=== PATIENT | female | born 1980 | race Caucasian/White ===

== ENCOUNTER 2021-08-11 07:59 | Emergency (ER) | payer MEDICAID, OTHER, SELFPAY ==
[2021-08-11 08:09] VITALS: BP 130/98; PULSE 70; RESP 14; TEMP 36.7; O2SAT 96; BMI 36.0
--- NOTE | 2021-08-11 08:12 | W.ED.LOWEXIN ---
HPI - Extremity Injury (Lower) General: Chief Complaint: Extremity Injury, Lower Stated Complaint: Fell, R knee injury Time Seen by Provider: 08/11/21 08:00 Source: patient Mode of arrival: ambulatory Limitations: no limitations History of Present Illness: 41-year-old female who presents to the emergency room after falling at work yesterday she slipped on some water. 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 She not strike her head she not lose consciousness she had an eversion kind of injury of her right knee she has been walking on it since but it is somewhat painful. He has not fallen again. complaint: knee injury (Right) Onset (ago): day(s) (1) Type of Injury: eversion Place: home Severity: mild Relieving factors: rest Exacerbating factors: weight bearing Context: fall Associated symptoms: Reports no associated symptoms Other symptoms: none Review of Systems Const: Denies: fever(s), chills, body aches, change in appetite, fatigue or malaise Card: Denies: chest pain, edema, dyspnea on exertion or orthopnea Resp: Denies: dyspnea, productive cough or non-productive cough PFS ED PFSH: Medical History (Updated 08/11/21 @ 08:37 by Brent Reilly DO) No significant past medical history Surgical History (Updated 08/11/21 @ 08:25 by Brent Reilly DO) No significant past surgical history Physical Exam Const: COMMON NORMALS: no acute distress GENERAL APPEARANCE: cooperative and comfortable ORIENTATION/CONSCIOUSNESS: Yes awake, Yes oriented to person, Yes oriented to place and Yes oriented to time HENMT: COMMON NORMALS: normocephalic, atraumatic and hearing grossly normal bilaterally HEAD & SCALP: normocephalic and atraumatic Neck/C-Spine: COMMON NORMALS: no JVD Resp: COMMON NORMALS: normal respiratory effort, No retractions, No use of accessory muscles and clear to auscultation bilaterally AUSCULTATION: clear to auscultation bilaterally Cardio: COMMON NORMALS: no JVD, regular rate, regular rhythm and No murmurs present (Cardio) RATE: regular rate RHYTHM: regular rhythm Extremity: COMMON NORMALS: normal to inspection, capillary refill normal, no clubbing, cyanosis or edema, no calf tenderness and no pedal edema OTHER: No ligamentous injury. drawer and Kenny tests negative. Neuro: SENSORIUM/ORIENTATION: Yes oriented to person, Yes oriented to place and Yes oriented to time Course Vital Signs: Vital signs: Vital Signs Temperature 98.1 F 08/11/21 08:09 Pulse Rate 73 08/11/21 08:16 Respiratory Rate 16 08/11/21 08:16 Blood Pressure 130/98 08/11/21 08:16 Pulse Oximetry 97 08/11/21 08:16 MDM - Extremity Injury (Lower) Medical Decision Making No ligamentous instability or laxity on examination of the right knee no acute fracture. We will put her in a knee immobilizer and crutches nonweightbearing recheck in 3 to 5 days if has persistent or worsening symptoms will need further evaluation, potentially including advanced imaging. Discussed with the patient. Patient being referred to for drug screening for Workmen's Compensation. Lab Data I reviewed the patient's lab results. Discharge Plan Discharge Patient Disposition: Home Clinical Impression: Right knee sprain Condition: Stable Prescriptions: New diclofenac sodium 75 mg tablet,delayed release (DR/EC) 75 mg PO Q12H PRN (Reason: pain) Qty: 20 0RF No Action flecainide 50 mg tablet 50 mg PO Q12H Qty: 180 3RF metoprolol succinate 25 mg tablet extended release 24 hr 25 mg PO DAILY Qty: 30 0RF Rx Instructions: MUST HAVE APPT FOR REFILLS Discharge Orders: Discharge ED (Routine); Ordered 08/11/21 Ordered By: Brent Reilly Referrals: Kushal Pierre MD [Primary Care Provider] - Discharge Diet: Usual diet Activity Restrictions/Additional Instructions: Follow-up with your primary care doctor within the next week Coding Level of Care Code ED Senior Online Marketing Manager for Chg Fwd Exam Detailed
--- NOTE | 2021-08-11 08:13 | XR_ITS ---
WS: [id number] RIGHT KNEE: 3 VIEW(S) TECHNIQUE: AP, oblique(s) and lateral. HISTORY: pain COMPARISON: None available. Seen only on the lateral projection is cortical irregularity along the anterior medial femoral condyl e. There is also slight irregularity noted in the lateral femoral notch. This may be associated with an ACL injury. No tibial plateau fracture. Patella appears normal. Minimal narrowing of the medial joint space. Small suprapatellar effusion. No soft tissue abnormality. XR/XR knee RT 3V* [id number] IMPRESSION: 1. Seen only on the lateral projection is cortical irregularity involving the anterior femoral condyle, probably the medial femoral condyle. 2. Slight irregularity at the lateral femoral notch which may indicate an ACL injury. 3. Small joint effusion. 4. Recommend follow-up RIGHT knee CT to exclude fracture.
[2021-08-11 08:16] VITALS: BP 130/98; PULSE 73; RESP 16; O2SAT 97
[2021-08-11] MEDS: ketorolac 60 mg/2 mL INJ IM (08:43)
--- NOTE | 2021-08-11 08:52 | PC.NURSE ---
PATIENT STATES SHE HAS CRUTCHES AT HOME. EDUCATION GIVEN ON USE.
[2021-08-11 08:53] VITALS: BP 125/89; PULSE 70; RESP 16; O2SAT 98
== END 2021-08-11 08:55 | disposition home or self-care (01) ==
PROVIDERS: Emergency Provider Family Medicine; PCP Family Medicine
DX: S83.91XA Sprain of unspecified site of right knee, initial encounter (principal); W01.0XXA Fall on same level from slipping, tripping and stumbling without subsequent striking against object, initial encounter; Y99.0 Civilian activity done for income or pay
CPT/HCPCS: 29530; 73562; 96372; 99283; J1885

== ENCOUNTER 2021-09-08 07:34 | Outpatient (CLI) | payer MEDICAID, SELFPAY ==
--- NOTE | 2021-09-08 07:52 | MR_ITS ---
WS: [id number] MRI RIGHT KNEE HISTORY: R KNEE PAIN COMPARISON: 08/11/2021 radiograph. Anterior cruciate ligament: Increased T2 signal in the distal proximal ACL. No full-thickness tear. Posterior cruciate ligament: Intact. Medial collateral ligament: Fluid on both sides of the MCL with thickening and partial tear involving the proximal tibial collateral ligament. Posterior lateral corner structures: Intact. Medial menisci: Intact. Normal signal, size and shape. Lateral meniscus: Intact. Normal signal, size and shape. Extensor mechanism: Distal quadriceps tendon and patellar tendons are intact. Fluid and soft tissue: There is a small joint effusion. Minimal soft tissue edema surrounding the kne e, greatest along the medial compartment. No Traylor's cyst. Osseous and articular structures: Patellofemoral compartment: Normal. Medial compartment: Very mild narrowing of the joint space. Mild diffuse loss of cartilage with fissu ring. No edema in the tibial plateau. There is a small amount of edema with loss of the normal trabec ular pattern involving the posterior medial femoral condyle. Lateral compartment: Minimal narrowed with mild fissuring and chondromalacia. More focal cartilage de fect along the weightbearing surface of the mid joint. No fracture or marrow edema. MR/MR knee RT wo con* [id number] IMPRESSION: 1. Partial tear proximal medial collateral ligament. 2. Focal marrow edema in the posterior medial femoral condyle from trabecular injury. 3. Mild ACL sprain. No full-thickness tear identified. 4. Mild mid to the medial lateral compartments with mild chondromalacia.
== END 2021-09-08 07:35 | disposition home or self-care (01) ==
LOC: RAD 07:37
PROVIDERS: PCP Family Medicine; Visit Provider Family Medicine
DX: S83.411A Sprain of medial collateral ligament of right knee, initial encounter (principal); S83.511A Sprain of anterior cruciate ligament of right knee, initial encounter; X58.XXXA Exposure to other specified factors, initial encounter; M94.261 Chondromalacia, right knee
CPT/HCPCS: 73721

== ENCOUNTER → 2021-09-21 08:54 | Outpatient (BNVA) | payer MEDICAID, SELFPAY | PROVIDERS: PCP Family Medicine; Referring Provider Internal Medicine; Visit Provider Physician Assistant | DX: S83.242A Other tear of medial meniscus, current injury, left knee, initial encounter (principal); W18.39XA Other fall on same level, initial encounter; Y99.0 Civilian activity done for income or pay | CPT/HCPCS: 99203; 99999 ==

== ENCOUNTER 2021-09-21 10:41 | Outpatient (CLI) | payer MEDICAID, SELFPAY | END 2021-09-21 10:42 | disposition home or self-care (01) | LOC: SPT 10:42 | PROVIDERS: PCP Family Medicine; Visit Provider Physician Assistant | DX: Z46.89 Encounter for fitting and adjustment of other specified devices (principal); S83.91XD Sprain of unspecified site of right knee, subsequent encounter; X58.XXXD Exposure to other specified factors, subsequent encounter | CPT/HCPCS: 97760; L1832 ==

== ENCOUNTER → 2021-10-28 09:14 | Outpatient (BNVA) | payer MEDICAID, SELFPAY | PROVIDERS: PCP Family Medicine; Visit Provider Physician Assistant | DX: S83.411D Sprain of medial collateral ligament of right knee, subsequent encounter (principal); X58.XXXD Exposure to other specified factors, subsequent encounter | CPT/HCPCS: 99213 ==

== ENCOUNTER → 2021-11-18 13:44 | Outpatient (BNVA) | payer MEDICAID, SELFPAY | PROVIDERS: PCP Family Medicine; Visit Provider Physician Assistant | DX: S83.411D Sprain of medial collateral ligament of right knee, subsequent encounter (principal); X58.XXXD Exposure to other specified factors, subsequent encounter | CPT/HCPCS: 99212 ==

== ENCOUNTER → 2023-05-15 11:17 | Outpatient (BNVA) | payer MEDICAID, SELFPAY | PROVIDERS: PCP Family Medicine; Visit Provider Family Medicine | DX: F41.9 Anxiety disorder, unspecified (principal); F32.A Depression, unspecified; Z13.220 Encounter for screening for lipoid disorders; Z51.81 Encounter for therapeutic drug level monitoring | CPT/HCPCS: 80053; 80061; 84443; 85025 ==

== ENCOUNTER 2023-11-24 10:43 | Observation (INO) | payer MEDICAID, SELFPAY ==
[2023-11-24] VITALS (14 sets, daily range): BP systolic 90–130; BP diastolic 49–104; PULSE 67–154; RESP 14–31; TEMP 36.6–36.8; O2SAT 95–99
--- NOTE | 2023-11-24 10:52 | ECG_ITS ---
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 Measurements Intervals [place] Rate: 154 P: 0 PA: 0 QRS: -14 QRSD: 83 T: 60 QT: 265 QTc: 425 Interpretive Statements ATRIAL FIBRILLATION WITH RAPID VENTRICULAR RESPONSE POSSIBLE ANTERIOR MYOCARDIAL INFARCTION , PROBABLY OLD [30 ms Q WAVE IN V3/V4, OR R < 0.2 mV IN V4] CRITICAL TEST RESULT No previous ECG available for comparison Electronically Signed On 11-24-2023 13:44:00 CDT by Gabe Dia M.D. [id number]
[2023-11-24] MEDS: dilTIAZem 5 mg/mL SDV 5 mL 20 MG IVP (11:05)
--- NOTE | 2023-11-24 11:11 | ED_ITS ---
HPI - Arrhythmia/Palpitations 2 General: Chief Complaint: Arrhythmia/Palpitations Stated Complaint: racing heart, numbness in left arm, has a-fib Time Seen by Provider: 11/24/23 11:00 Source: patient Mode of arrival: ambulatory History of Present Illness: 43-year-old female with a history of atr ial fibrillation was diagnosed about 10 years ago. Her A-fib is idiopathic. For the last 24 hours she has had racing of her heart rate with heaviness in her left arm some mild chest discomfort lightheadedness dizziness she has not passed out. She has not had any orthopnea no swelling in her legs. She was previously on propranolol but ran out about a month ago she has not been on any regular long-term medications for her rate nor has she been on any anticoagulants. MD complaint: rapid heart beat and heart racing Review of Systems 2 Const: Denies: fever(s) or chills Card: Denies: chest pain Resp: Denies: dyspnea GI: Denies: abdominal pain : Denies: dysuria, urinary frequency or urinary urgency Musc: Denies: neck pain or back pain Skin/Breast: Denies: rash PFSH ED 2 PFSH: Medical History Paroxysmal atrial fibrillation off of coumadin due to heavy periods Surgical History Hx of cholecystectomy Family History Other CAD (coronary artery disease) Diabetes Hypertension Social History (Updated 11/24/23 @ 13:35 by Chas Mendieta MD) Smoking and tobacco/nicotine status: never used tobacco/nicotine Alcohol intake: never Substance/Drug Use: never Physical Exam 2 Const: GENERAL APPEARANCE: cooperative and comfortable O RIENTATION/CONSCIOUSNESS: Yes awake, Yes oriented to person, Yes oriented to place and Yes oriented to time HENMT: COMMON NORMALS: normocephalic, atraumatic and hearing grossly normal bilaterally HEAD & SCALP: normocephalic and atraumatic Resp: COMMON NORMALS: normal respiratory effort, No retractions, No use of accessory muscles and clear to auscultation bilaterally AUSCULTATION: clear to auscultation bilaterally Cardio: COMMON NORMALS: No murmurs present (Cardio) RATE: tachycardic R HYTHM: abnormal rhythm irregularly irregular GI: COMMON NORMALS: Soft to palpation and No hepatosplenomegaly present A USCULTATION: Yes normoactive bowel sounds PALPATION: Yes Soft to palpation, No Tenderness to palpation present (GI), No Guarding due to palpation present (GI) and Yes No hepatosplenomegaly present Extremity: COMMON NORMALS: normal to inspection, capillary refill normal, no clubbing, cyanosis or edema, no calf tenderness and no pedal edema Neuro: SENSORIUM/ORIENTATION: Yes oriented to person, Yes oriented to place and Yes oriented to time Skin: COMMON NORMALS: no rashes or lesions noted GENERAL SKIN EXAM: no rashes or lesions noted Course 2 Vital Signs: Vital signs: Vital Signs Temperature 98.2 F 11/24/23 10:49 Pulse Rate 110 H 11/24/23 12:17 Respiratory Rate 18 11/24/23 12:17 Blood Pressure 130/104 11/24/23 12:17 Pulse Oximetry 96 11/24/23 12:17 Oxygen Delivery Me thod Room Air 11/24/23 12:17 MDM - Arrhythmia/Palpitations Medical Decision Making A-fib with RVR rate improved with initiation of Cardizem. Not previously on medicines for rate control placed on observation continue Cardizem drip discussed with hospitalist orders written Medical Records I reviewed the patient's medical records. Lab Data I reviewed the patient's lab results. 11/24/23 11:04 11/24/23 11:04 Radiology Impressions Chest X-Ray 11/24/23 11:47 IMPRESSION: Unremarkable chest radiograph. Laboratory Results WBC 9.43 10^3/uL (3.29-11.43) 11/24/23 11:04 RBC 5.04 10^6/uL (3.85-5.65) 11/24/23 11:04 Hgb 14.60 g/dL (11.27-16.99) 11/24/23 11:04 Hct 44.6 % (36-47) 11/24/23 11:04 MCV 88.5 fl (85-98) 11/24/23 11:04 MCH 29.0 pg (27-33) 11/24/23 11:04 MCHC 32.7 g/dL (30-55) 11/24/23 11:04 RDW 13.1 % (12.1-15.1) 11/24/23 11:04 Plt Count 360 10^3/cmm (157-399) 11/24/23 11:04 MPV 10.8 fL (7.4-10.4) H 11/24/23 11:04 Neut % (Auto) 61.7 % 11/24/23 11:04 Lymph % (Auto) 30.1 % 11/24/23 11:04 [place] % (Auto) 6.3 % 11/24/23 11:04 Eos % (Auto) 1.2 % 11/24/23 11:04 Baso % (Auto) 0.5 % 11/24/23 11:04 Neut # (Auto) 5.82 10^3/uL (1.8-7.7) 11/24/23 11:04 Lymph # (Auto) 2.8 10^3/uL (0.8-4.8) 11/24/23 11:04 [place] # (Auto) 0.6 10^3/uL (0.2-0.9) 11/24/23 11:04 Eos # (Auto) 0.1 10^3/uL (0.0-0.8) 11/24/23 11:04 Baso # (Auto) 0.1 10^3/uL (0.0-0.1) 11/24/23 11:04 Nucleated RBC % (auto) 0 % 11/24/23 11:04 Nucleated RBCs # 0.0 /100WBC 11/24/23 11:04 Sodium 142 mmol/L (136-145) 11/24/23 11:04 Potassium 4.2 mmol/L (3.5-5.1) 11/24/23 11:04 Chloride 107 mmol/L (98-107) 11/24/23 11:04 Carbon Dioxide 24 mmol/L (22-29) 11/24/23 11:04 Anion Gap 15.2 (5-19) 11/24/23 11:04 BUN 10 mg/dL (6-20) 11/24/23 11:04 Creatinine 0.7 mg/dL (0.5-0.9) 11/24/23 11:04 GFR Calculation 90.9 mL/min (90-130) 11/24/23 11:04 Glucose 158 mg/dL (65-115) H 11/24/23 11:04 Calculated Osmolality 296 mOsm/kg (285-295) H 11/24/23 11:04 Calcium 9.1 mg/dL (8.5-10.5) 11/24/23 11:04 Total Bilirubin 0.5 mg/dL (0.15-1.2) 11/24/23 11:04 AST 22 U/L (0-32) 11/24/23 11:04 ALT 39 U/L (0-33) H 11/24/23 11:04 Alkaline Phosphatase 96 U/L (35-105) 11/24/23 11:04 Troponin T Baseline < 6 ng/L (0-10) 11/24/23 11:04 Troponin T 120 Minute 6.00 ng/L (0-10) 11/24/23 13:04 Delta Troponin T 0.61475 ABS# (0-10) 11/24/23 13:04 Total Protein 7.3 g/dL (6.6-8.7) 11/24/23 11:04 Albumin 4.4 g/dL (3.5-5.2) 11/24/23 11:04 Globulin 2.9 g/dL (1.3-4.6) 11/24/23 11:04 TSH 2.28 uIU/mL (0.27-4.20) 11/24/23 11:04 Urine Color Yellow (Yellow) 11/24/23 13:11 Urine Appearance Cloudy (CLEAR) A 11/24/23 13:11 Urine pH 6 (5-7) 11/24/23 13:11 Ur Specific [place] 1.020 (1.005-1.030) 11/24/23 13:11 Urine Protein Neg (Negative) 11/24/23 13:11 Urine Glucose (UA) Norm (Normal) 11/24/23 13:11 Urine Ketones Negative (Negative) 11/24/23 13:11 Urine Blood Trace (Negative) H 11/24/23 13:11 Urine Nitrate Negative (Negative) 11/24/23 13:11 Urine Bilirubin Neg (Negative) 11/24/23 13:11 Urine Urobilinogen Norm mg/dL (Negative) 11/24/23 13:11 Ur Leukocyte Esterase 2+ (Negative) H 11/24/23 13:11 Urine RBC 0-4 /hpf (0-2) H 11/24/23 13:11 Urine WBC 25-40 /hpf (0-5) H 11/24/23 13:11 Ur Squamous Epith Cells 10-15 /hpf (0-5) H 11/24/23 13:11 Amorphous Sediment Trace /hpf 11/24/23 13:11 Urine Bacteria 1+ /hpf (NONE) H 11/24/23 13:11 Urine Mucus 1+ /hpf 11/24/23 13:11 All radiology interpretation(s) finalized by discharge Discharge Plan Discharge Patient Disposition: Admitted As Inpatient Clinical Impression: Atrial fibrillation with RVR Condition: Stable Coding Level of Care Code ED Naturalist for Félix Mckee
[2023-11-24 11:15] LABS: Basophils # 0.1 10^3/uL (0.0-0.1); Basophils % 0.5 %; Eosinophils # 0.1 10^3/uL (0.0-0.8); Eosinophils % 1.2 %; Hematocrit 44.6 % (36-47); Lymphocytes # 2.8 10^3/uL (0.8-4.8); Lymphocytes % 30.1 %; Mean Corpuscular HGB Conc 32.7 g/dL (30-55); Mean Corpuscular Volume 88.5 fl (85-98); Mean Platelet Volume 10.8 fL (7.4-10.4); Monocytes # 0.6 10^3/uL (0.2-0.9); Monocytes % 6.3 %; Neutrophils # 5.82 10^3/uL (1.8-7.7); Neutrophils % 61.7 %; Nucleated Red Blood Cells % 0 %; Platelet Count 360 10^3/cmm (157-399); Red Blood Count 5.04 10^6/uL (3.85-5.65); Red Cell Distribution Width 13.1 % (12.1-15.1); White Blood Count 9.43 10^3/uL (3.29-11.43)
[2023-11-24] MEDS: dilTIAZem 100 MG in sodium chloride 0.9% (add-van) 100 ML IV (11:22)
[2023-11-24 11:34] LABS: Troponin(5th) Baseline < 6 ng/L (0-10)
[2023-11-24 11:44] LABS: Alanine Aminotransferase 39 U/L (0-33); Albumin Level 4.4 g/dL (3.5-5.2); Alkaline Phosphatase 96 U/L (35-105); Aspartate Amino Transferase 22 U/L (0-32); Blood Urea Nitrogen 10 mg/dL (6-20); Calcium 9.1 mg/dL (8.5-10.5); Carbon Dioxide 24 mmol/L (22-29); Chloride 107 mmol/L (98-107); Globulin 2.9 g/dL (1.3-4.6); Glomerular Filtration Rate 90.9 mL/min (90-130); Glucose 158 mg/dL (65-115); Osmolality Calculated 296 mOsm/kg (285-295); Sodium 142 mmol/L (136-145); Thyroid Stimulating Hormone 2.28 uIU/mL (0.27-4.20); Total Bilirubin 0.5 mg/dL (0.15-1.2); Total Protein 7.3 g/dL (6.6-8.7)
--- NOTE | 2023-11-24 11:47 | XR_ITS ---
WS: [id number] Exam: XR chest 1V portable [id number] Date/Time of Exam: 11/24/2023 11:50 AM Reason For Exam: dyspnea/cough Comparison 04/15/2013. Findings: The lungs are clear and fully expanded. Costophrenic angles are sharp. No infiltrates. Bronchovascula r relief appears normal. Cardiac silhouette is unremarkable. Bony elements are intact. XR/XR chest 1V portable [id number] IMPRESSION: Unremarkable chest radiograph.
[2023-11-24 12:02] LABS: Anion Gap 15.2 (5-19); Potassium 4.2 mmol/L (3.5-5.1)
--- NOTE | 2023-11-24 13:01 | ECG_ITS ---
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 Measurements Intervals [place] Rate: 83 P: 0 [place]: 0 QRS: 2 QRSD: 88 T: 76 QT: 354 QTc: 417 Interpretive Statements ATRIAL FIBRILLATION POSSIBLE ANTERIOR MYOCARDIAL INFARCTION , PROBABLY OLD [30 ms Q WAVE IN V3/V4, OR R < 0.2 mV IN V4] ABNORMAL RHYTHM ECG Compared to ECG 11/24/2023 10:43:19 No significant changes Electronically Signed On 11-24-2023 14:02:47 CDT by Gabe Dia M.D. [email or web address] system [email or web address] hospital.[employer]/store/OM/[id number]
[2023-11-24 13:26] LABS: Add Urine Microscopic? YES; Bilirubin Urine Neg (Negative); Blood Urine Trace (Negative); Glucose Urine UA Norm (Normal); Ketones Urine Negative (Negative); Leukocyte Esterase Urine 2+ (Negative); Nitrate Urine Negative (Negative); Protein Urine Neg (Negative); Urine Appearance Cloudy (CLEAR); Urine Color Yellow (Yellow); Urobilinogen Urine Norm (Negative); pH Urine 6 (5-7)
[2023-11-24 13:28] LABS: Troponin 5 2HR Delta 0.00001 ABS# (0-10)
[2023-11-24 13:30] LABS: RBC Urine 0-4 /hpf (0-2)
[2023-11-24 13:31] LABS: Add Urine Culture? Yes; Amorphous Sediment Urine TRACE /hpf; Bacteria Urine 1+ /hpf; Mucus Urine 1+ /hpf; WBC Urine 25-40 /hpf (0-5)
--- NOTE | 2023-11-24 13:31 | USCV_ITS ---
Freddy Annia Age: 43 Gender: F : 1980 Exam Date: 11/24/2023 15:23 Ordering Phys: Chas Mendieta MD Technologist: Issac Linares [place] [facility] [place] new onset afiv BP: 114 / 81 HR: 79 Rhythm: Sinus Technical Quality: Poor MEASUREMENTS (Male / Female) Normal Values 2D ECHO LV Diastolic Diameter PLAX 4.7 cm 4.2 - 5.9 / 3.9 - 5.3 cm IVS Diastolic Thickness 1.4 cm 0.6 - 1.0 / 0.6 - 0.9 cm LVPW Diastolic Thickness 1.4 cm 0.6 - 1.0 / 0.6 - 0.9 cm LVPW Systolic Thickness 2.0 cm LVOT Diameter 2.0 cm LV Ejection Fraction 2D Teich 58.9 % LV Ejection Fraction MOD 2C 69.9 % LV Ejection Fraction 2C AL 71.6 % LA Diameter 3.9 cm RA Systolic Volume 4C AL 41.7 ml RA Systolic Volume 4C MOD 42.9 ml Aorta at Sinotubular Diameter 2.7 cm IVC Diameter 1.8 cm M-MODE LA Ao Ratio MM 1.1 AV Cusp Separation MM 2.2 cm DOPPLER AV Peak Velocity 102.0 cm/s LVOT Peak Velocity 64.0 cm/s AV Area Cont Eq vti 2.5 cm squared AV Area Cont Eq pk 2.1 cm squared MV Peak Velocity 105.0 cm/s TV Peak Velocity 249.5 cm/s TR Peak Velocity 271.0 cm/s TR Peak Gradient 29.4 mmHg TR Mean Velocity 212.0 cm/s TR Mean Gradient 18.9 mmHg TR Velocity Time Integral 73.5 cm PV Peak Velocity 71.3 cm/s RV Ejection Time 0.3 s FINDINGS Left Ventricle Normal left ventricular size, systolic function and wall thickness, with no regional wall motion abnormalities. Rhythm precludes evaluation of diastolic function. Left ventricular ejection fraction is estimated at 60 %. Right Ventricle Normal right ventricular size and systolic function. Right Atrium The right atrium is normal in size. Left Atrium The left atrium is normal in size. Mitral Valve Structurally normal mitral valve without significant stenosis or prolapse. There is no mitral regurgitation. Aortic Valve Structurally normal aortic valve without significant sclerosis or stenosis. There is no aortic regurgitation. Tricuspid Valve Structurally normal tricuspid valve without significant stenosis or regurgitation. Pulmonary artery systolic pressure is normal. Pulmonic Valve Structurally normal pulmonic valve. Pericardium Normal pericardium without effusion. Aorta Ascending aorta dimension 3.26 cm IVC Inferior vena cava not visualized. CONCLUSIONS Normal left ventricular size, systolic function and wall thickness, with no regional wall motion abnormalities. Rhythm precludes evaluation of diastolic function. Left ventricular ejection fraction is estimated at 60 %. Ascending aorta dimension 3.26 cm. Previous study was done in December,. The atrial fibrillation is new. Otherwise, no change. Dr. Gabe Dia MD (Electronically Signed) Final Date: 25 November 2023 11:47 S
--- NOTE | 2023-11-24 13:32 | P.HP_ITS ---
Providers/Chief Complaint 2 Primary Care Provider: Kushal Pierre MD Chief Complaint: racing heart, numbness in left arm, has a-fib History of Present Illness Annia Hayes is a 43 year old female with a past medical history of paroxysmal atrial fibrillation, anxiety depression, who presents [facility] for chest palpitations, shortness of breath. Currently patient is in A- fib heart rates are in the 110s, on Cardizem drip, blood pressure 130/104, she is alert oriented x 3, following all commands. Patient was diagnosed with atrial fibrillation back in 2012, she tells me that she was on diltiazem for some period of time, but she stopped taking it as she started feeling well, she tells me that she was also on Coumadin for some period of time, for her atrial fibrillation, but she was taken off of it due to heavy bleeding during periods, recently she has been having a lot of stressors in her life she has gone through a divorce she is a single mom of 3 kids, so she has had increased stress and anxiety in her life, she also tells me that she drinks roughly 4 cups of coffee a day, for the last few days she has been experiencing increased shortness of breath, paroxysmal nocturnal dyspnea, chest palpitations, no fevers, no chills, no nausea, no vomiting denies history of drug use, denies a history of alcoholism no facial droop no slurring of words no focal weakness Review of Systems 2 Const: Denies: fever(s) Card: Reports: palpitations Resp: Reports: dyspnea GI: Denies: abdominal pain : Denies: flank pain or difficulty voiding Neuro: Denies: headache(s), difficulty walking or dizziness Psych: Reports: anxiety Medications/Allergies Home Medications Medication Instructions Recorded Confirmed Last Taken Type citalopram 10 mg tablet 10 mg PO DAILY #30 tabs 05/15/23 11/24/23 2 Months Ago Rx ~09/24/23 propranolol 10 mg tablet 10 mg PO BID #60 tabs 08/11/23 11/24/23 2 Months Ago Rx ~09/24/23 Allergies Allergy/AdvReac Type Severity Reaction Status Date / Time No Known Allergies Allergy Verified 11/24/23 10:52 PFSH Acute 2 PFSH: Medical History Paroxysmal atrial fibrillation off of coumadin due to heavy periods Surgical History Hx of cholecystectomy Family History Other CAD (coronary artery disease) Diabetes Hypertension Social History (Updated 11/24/23 @ 13:35 by Chas Mendieta MD) Smoking and tobacco/nicotine status: never used tobacco/nicotine Alcohol intake: never Substance/Drug Use: never Vitals/I&O/Wt Last Vital Signs Temp 98.2 F 11/24/23 10:49 Pulse 110 H 11/24/23 12:17 Resp 18 11/24/23 12:17 BP 130/104 11/24/23 12:17 Pulse Ox 96 11/24/23 12:17 O2 Del Method Room Air 11/24/23 12:17 Weight last 48 hrs Weight 110.223 kg Physical Exam 2 Const: COMMON NORMALS: no acute distress and patient oriented x3 HENMT: COMMON NORMALS: normocephalic HEAD & SCALP: normocephalic Eye: COMMON NORMALS: Equal, round and reactive pupils present and EOMs intact bilaterally Neck/C-Spine: COMMON NORMALS: no JVD Lymph: LYMPHATIC: no lymphadenopathy noted Resp: COMMON NORMALS: normal respiratory effort, No retractions, No use of accessory muscles and clear to auscultation bilaterally AUSCULTATION: clear to auscultation bilaterally Cardio: COMMON NORMALS: no JVD, S1 normal heart sound present and S2 normal heart sound present HEART SOUNDS: S1 normal heart sound present and S2 normal heart sound present GI: COMMON NORMALS: Normal to inspection, nondistended, normoactive bowel sounds present, Soft to palpation and non-tender Extremity: NARRATIVE EXTREMITY EXAM: 1+ pitting edema Neuro: COMMON NORMALS: patient oriented x3, CN's II-XII intact bilaterally and moves all extremities Psych: COMMON NORMALS: mental status grossly normal Data 11/24/23 11:04 11/24/23 11:04 A&P Assessment and plan (1) Atrial fibrillation with RVR: (2) Anxiety and depression: Plan Atrial fibrillation with rapid ventricular response ? Trey 2 Vascs2 score 2, mild to moderate risk of CVA, discussed aspirin versus anticoagulation, after discussing risk and benefits, shared decision making, she voiced understanding, all questions answered, for now wants to proceed with aspirin 81 mg ? Plan ? Continue Cardizem drip ? Transition to p.o. Cardizem ? Aspirin 81 mg ? A1c, lipid panel ? 1 dose IV Lasix ? Full code ? Lovenox for DVT prophylaxis Attestations 2 Medical Necessity Statement*: Patient requires hospitalization for A-fib with RVR, outpatient observation Diagnoses Atrial fibrillation with RVR I48.91 Anxiety and depression F41.9; F32.A
[2023-11-24 14:05] LABS: NT Pro B Type Natriuretic Pept 1337 pg/mL (0-125)
[2023-11-24 14:08] LABS: Alcohol Level < 10 mg/dL (0-10)
[2023-11-24 15:05] LABS: Chol HDL Ratio 2.77 mg/dL (0.0-4.40); Cholesterol 130 mg/dL (0-200); HDL Cholesterol 47 mg/dL (60-100); LDL Cholesterol Calculated 61 mg/dL (50-129); Triglycerides 110 mg/dL (0-150)
[2023-11-24 15:20] LABS: Estmated Average Glucose 100; Hemoglobin A1C 5.1 % (4.0-6.0)
[2023-11-24 15:53] LABS: Amphetamines Screen Urine Negative (Negative); Barbiturates Screen Urine Negative (Negative); Benzodiazepines Screen Urine Negative (Negative); Cocaine Screen Urine Negative (Negative); Opiate Screen Urine Negative (Negative); PCP Screen Urine Negative (Negative); THC Screen Urine Negative (Negative)
[2023-11-24] MEDS: FUROsemide 10 mg/mL SDV 2mL 20 MG IVP (16:18)
[2023-11-24] MEDS: pantoprazole 40 mg SDV IVP (16:18)
[2023-11-24] MEDS: dilTIAZem 30 mg Tablet PO (16:19)
[2023-11-24] MEDS: enoxaparin 40 mg/0.4 mL Syringe SUBCUT (16:20)
[2023-11-24] MEDS: aspirin 81 mg EC Tablet PO (16:20)
--- NOTE | 2023-11-24 16:59 | ECG_ITS ---
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 Measurements Intervals [place] Rate: 109 P: 0 [place]: 0 QRS: -9 QRSD: 91 T: 76 QT: 356 QTc: 481 Interpretive Statements ATRIAL FIBRILLATION WITH RAPID VENTRICULAR RESPONSE WITH ABERRANT CONDUCTION OR VENTRICULAR PREMATURE COMPLEXES NONSPECIFIC ST & T-WAVE ABNORMALITY ABNORMAL RHYTHM ECG Compared to ECG 11/24/2023 12:51:00 Ventricular premature complex(es) now present Aberrant conduction of supraventricular beat(s) now present T-wave abnormality now present Myocardial infarct finding no longer present Electronically Signed On 11-25-2023 8:11:25 CDT by Gabe Dia M.D. [email or web address].[email or web address]/[id number]
[2023-11-24 18:21] LABS: Troponin 5 6HR Delta 0.00001 ng/L (0-12)
--- NOTE | 2023-11-24 19:10 | PC.NURSE ---
Patient transferred to ICU. Report given to Jessica RICHARDS.
[2023-11-24] MEDS: dilTIAZem 60 mg Tablet PO (20:40)
[2023-11-24] MEDS: acetaminophen 325 mg Tablet 650 MG PO (20:40)
[2023-11-24] MEDS: cefTRIAXone 1,000 MG in sodium chloride 0.9% (plus) 50 ML 100 MG IV (20:41)
[2023-11-25] VITALS (8 sets, daily range): BP systolic 89–126; BP diastolic 62–89; PULSE 63–86; RESP 16–21; TEMP 36.1–36.3; O2SAT 93–97
[2023-11-25 04:06] LABS: Alanine Aminotransferase 34 U/L (0-33); Albumin Level 3.9 g/dL (3.5-5.2); Alkaline Phosphatase 85 U/L (35-105); Anion Gap 13.6 (5-19); Aspartate Amino Transferase 17 U/L (0-32); Blood Urea Nitrogen 12 mg/dL (6-20); Calcium 8.8 mg/dL (8.5-10.5); Carbon Dioxide 25 mmol/L (22-29); Chloride 106 mmol/L (98-107); Glucose 133 mg/dL (65-115); Osmolality Calculated 294 mOsm/kg (285-295); Potassium 3.6 mmol/L (3.5-5.1); Sodium 141 mmol/L (136-145); Total Bilirubin 0.4 mg/dL (0.15-1.2); Total Protein 6.9 g/dL (6.6-8.7)
[2023-11-25] MEDS: dilTIAZem 60 mg Tablet PO (05:49)
--- NOTE | 2023-11-25 08:16 | PM.DCS ---
Discharge Providers Date of Admission: 11/24/23 14:02 Date of Discharge: November 25, 2023 Attending Provider at Admission: Chas Mendieta MD Attending Provider at Discharge: Chas Mendieta MD Primary Care Provider: Kushal Pierre MD Diagnoses at Discharge Discharge Diagnosis (1) Atrial fibrillation with RVR: Status: Acute (2) Anxiety and depression: Status: Acute Reason for Visit Reason for Visit: racing heart, numbness in left arm, has a-fib Hospital Course Hospital Course Annia Hayes is a 43 year old female with a past medical history of paroxysmal atrial fibrillation, anxiety depression, who presents [facility] for chest palpitations, shortness of breath. Currently patient is in A-fib heart rates are in the 110s, on Cardizem drip, blood pressure 130/104, she is alert oriented x 3, following all commands. Patient was diagnosed with atrial fibrillation back in 2012, she tells me that she was on diltiazem for some period of time, but she stopped taking it as she started feeling well, she tells me that she was also on Coumadin for some period of time, for her atrial fibrillation, but she was taken off of it due to heavy bleeding during periods, recently she has been having a lot of stressors in her life she has gone through a divorce she is a single mom of 3 kids, so she has had increased stress and anxiety in her life, she also tells me that she drinks roughly 4 cups of coffee a day, for the last few days she has been experiencing increased shortness of breath, paroxysmal nocturnal dyspnea, chest palpitations, no fevers, no chills, no nausea, no vomiting denies history of drug use, denies a history of alcoholism no facial droop no slurring of words no focal weaknes This is Andrey is a 43-year-old female, with a past medical history of A-fib with RVR, paroxysmal, who presented to [facility] for A-fib with RVR, she was monitored on a Cardizem drip, transition off to p.o. Cardizem, she converted to normal sinus rhythm during her hospitalization. She will be discharged on Cardizem to 240 mg daily with aspirin 81 mg daily In terms of her CHADS2 Vasc2 score is between 1 and 2 as she does not have a formal diagnosis of hypertension, nonetheless her risk of stroke is mild to moderate risk of CVA, she was on anticoagulation in the past, but he had to be stopped due to heavy bleeding during periods, discussed aspirin versus anticoagulation, after discussing risk and benefits of each option, shared decision making, she voiced understanding, all questions answered, for now wants to proceed with aspirin 81 mg. Nonetheless, we will have her follow-up with cardiology as outpatient, for shared decision making, she was advised if she were to have any strokelike symptoms to immediately call 911 In terms of etiology behind her A-fib with RVR, a significant component related to her caffeine use, she drinks 4 cups of caffeine a day, I have advised her to abstain from caffeine consumption. In addition she is going through a lot of stress in her life she is going through a divorce, she is a single mother of 3 kids. Nonetheless she should follow-up with cardiology, cardiac echocardiogram Physical Exam Const: COMMON NORMALS: no acute distress and patient oriented x3 Resp: COMMON NORMALS: normal respiratory effort, No retractions, No use of accessory muscles and clear to auscultation bilaterally AUSCULTATION: clear to auscultation bilaterally Cardio: COMMON NORMALS: regular rate, regular rhythm, S1 normal heart sound present and S2 normal heart sound present RATE: regular rate RHYTHM: regular rhythm HEART SOUNDS: S1 normal heart sound present and S2 normal heart sound present GI: COMMON NORMALS: Normal to inspection, nondistended, normoactive bowel sounds present and non-tender Extremity: COMMON NORMALS: no pedal edema Neuro: COMMON NORMALS: patient oriented x3 Psych: COMMON NORMALS: mental status grossly normal Discharge Data Studies Completed and Pending Completed Studies During Hospitalization Category Date Time Status XR chest 1V portable [id number] Stat Exams 11/24/23 11:47 Completed Pending at discharge Category Date Time Status Urine Culture Stat Lab 11/24/23 13:11 Received CV. echo complete* [id number] Stat Ultrasound 11/24/23 13:31 Taken Radiology Impressions Chest X-Ray 11/24/23 11:47 IMPRESSION: Unremarkable chest radiograph. Laboratory Results WBC 9.43 10^3/uL (3.29-11.43) 11/24/23 11:04 RBC 5.04 10^6/uL (3.85-5.65) 11/24/23 11:04 Hgb 14.60 g/dL (11.27-16.99) 11/24/23 11:04 Hct 44.6 % (36-47) 11/24/23 11:04 MCV 88.5 fl (85-98) 11/24/23 11:04 MCH 29.0 pg (27-33) 11/24/23 11:04 MCHC 32.7 g/dL (30-55) 11/24/23 11:04 RDW 13.1 % (12.1-15.1) 11/24/23 11:04 Plt Count 360 10^3/cmm (157-399) 11/24/23 11:04 MPV 10.8 fL (7.4-10.4) H 11/24/23 11:04 Neut % (Auto) 61.7 % 11/24/23 11:04 Lymph % (Auto) 30.1 % 11/24/23 11:04 [place] % (Auto) 6.3 % 11/24/23 11:04 Eos % (Auto) 1.2 % 11/24/23 11:04 Baso % (Auto) 0.5 % 11/24/23 11:04 Neut # (Auto) 5.82 10^3/uL (1.8-7.7) 11/24/23 11:04 Lymph # (Auto) 2.8 10^3/uL (0.8-4.8) 11/24/23 11:04 [place] # (Auto) 0.6 10^3/uL (0.2-0.9) 11/24/23 11:04 Eos # (Auto) 0.1 10^3/uL (0.0-0.8) 11/24/23 11:04 Baso # (Auto) 0.1 10^3/uL (0.0-0.1) 11/24/23 11:04 Nucleated RBC % (auto) 0 % 11/24/23 11:04 Nucleated RBCs # 0.0 /100WBC 11/24/23 11:04 Sodium 141 mmol/L (136-145) 11/25/23 03:36 Potassium 3.6 mmol/L (3.5-5.1) 11/25/23 03:36 Chloride 106 mmol/L (98-107) 11/25/23 03:36 Carbon Dioxide 25 mmol/L (22-29) 11/25/23 03:36 Anion Gap 13.6 (5-19) 11/25/23 03:36 BUN 12 mg/dL (6-20) 11/25/23 03:36 Creatinine 0.5 mg/dL (0.5-0.9) 11/25/23 03:36 GFR Calculation 134.0 mL/min (90-130) H 11/25/23 03:36 Glucose 133 mg/dL (65-115) H 11/25/23 03:36 Estimat Average Glucose 100 11/24/23 12:39 Hemoglobin A1c 5.1 % (4.0-6.0) 11/24/23 12:39 Calculated Osmolality 294 mOsm/kg (285-295) 11/25/23 03:36 Calcium 8.8 mg/dL (8.5-10.5) 11/25/23 03:36 Magnesium 2.0 mg/dL (1.7-2.3) 11/24/23 13:04 Total Bilirubin 0.4 mg/dL (0.15-1.2) 11/25/23 03:36 AST 17 U/L (0-32) 11/25/23 03:36 ALT 34 U/L (0-33) H 11/25/23 03:36 Alkaline Phosphatase 85 U/L (35-105) 11/25/23 03:36 Troponin T Baseline < 6 ng/L (0-10) 11/24/23 11:04 Troponin T 120 Minute 6.00 ng/L (0-10) 11/24/23 13:04 Delta Troponin T 0.38022 ABS# (0-10) 11/24/23 13:04 Troponin T Hi Sens 6Hr 6.00 ng/L (0-10) 11/24/23 17:39 Troponin T Hi Sens 6Hr Delta 0.78887 ng/L (0-12) 11/24/23 17:39 NT-Pro-B Natriuret Pep 1337 pg/mL (0-125) H 11/24/23 13:04 Total Protein 6.9 g/dL (6.6-8.7) 11/25/23 03:36 Albumin 3.9 g/dL (3.5-5.2) 11/25/23 03:36 Globulin 3.0 g/dL (1.3-4.6) 11/25/23 03:36 Triglycerides 110 mg/dL (0-150) 11/24/23 13:04 Cholesterol 130 mg/dL (0-200) 11/24/23 13:04 LDL Cholesterol, Calc 61 mg/dL (50-129) 11/24/23 13:04 HDL Cholesterol 47 mg/dL (60-100) L 11/24/23 13:04 LDL/HDL Ratio 1.30 RATIO (0.00-3.22) 11/24/23 13:04 Cholesterol/HDL Ratio 2.77 mg/dL (0.0-4.40) 11/24/23 13:04 TSH 2.28 uIU/mL (0.27-4.20) 11/24/23 11:04 Urine Color Yellow (Yellow) 11/24/23 13:11 Urine Appearance Cloudy (CLEAR) A 11/24/23 13:11 Urine pH 6 (5-7) 11/24/23 13:11 Ur Specific Bend 1.020 (1.005-1.030) 11/24/23 13:11 Urine Protein Neg (Negative) 11/24/23 13:11 Urine Glucose (UA) Norm (Normal) 11/24/23 13:11 Urine Ketones Negative (Negative) 11/24/23 13:11 Urine Blood Trace (Negative) H 11/24/23 13:11 Urine Nitrate Negative (Negative) 11/24/23 13:11 Urine Bilirubin Neg (Negative) 11/24/23 13:11 Urine Urobilinogen Norm mg/dL (Negative) 11/24/23 13:11 Ur Leukocyte Esterase 2+ (Negative) H 11/24/23 13:11 Urine RBC 0-4 /hpf (0-2) H 11/24/23 13:11 Urine WBC 25-40 /hpf (0-5) H 11/24/23 13:11 Ur Squamous Epith Cells 10-15 /hpf (0-5) H 11/24/23 13:11 Amorphous Sediment Trace /hpf 11/24/23 13:11 Urine Bacteria 1+ /hpf (NONE) H 11/24/23 13:11 Urine Mucus 1+ /hpf 11/24/23 13:11 Urine Opiates Screen Negative ng/mL (Negative) 11/24/23 13:11 Ur Barbiturates Screen Negative ng/mL (Negative) 11/24/23 13:11 Ur Phencyclidine Scrn Negative ng/mL (Negative) 11/24/23 13:11 Ur Amphetamines Screen Negative ng/mL (Negative) 11/24/23 13:11 U Benzodiazepines Scrn Negative ng/mL (Negative) 11/24/23 13:11 Urine Cocaine Screen Negative ng/mL (Negative) 11/24/23 13:11 U Marijuana (THC) Screen Negative ng/mL (Negative) 11/24/23 13:11 Ethyl Alcohol < 10 mg/dL (0-10) 11/24/23 13:04 Vitals Last Vital Signs Temp 97.4 F L 11/25/23 04:00 Pulse 70 11/25/23 06:00 Resp 19 H 11/25/23 06:00 BP 103/74 11/25/23 06:00 Pulse Ox 94 11/25/23 06:00 O2 Del Method Room Air 11/24/23 16:35 Discharge Plan Discharge Patient Disposition: Home Condition: Stable Prescriptions: New aspirin 81 mg Tablet,Delayed Release (Dr/Ec) 81 mg PO DAILY 30 Days Qty: 30 0RF diltiazem HCl 240 mg capsule,extended release 24hr 240 mg PO DAILY 30 Days Qty: 30 0RF cefdinir 300 mg capsule 300 mg PO BID 5 Days Qty: 10 0RF Continued citalopram 10 mg tablet 10 mg PO DAILY Qty: 30 6RF Discontinued propranolol 10 mg tablet 10 mg PO BID Qty: 60 6RF Discharge Orders: Discharge Order (Routine); Ordered 11/25/23 Ordered By: Chas Mendieta Referrals: Leonel Covington MD [Referring] - 1 week (afib) Kushal Pierre MD [Primary Care Provider] - Discharge Diet: Cardiac Discharge Activity: Resume usual activity Patient Instructions: Diltiazem (By mouth) (Cardizem, Cardizem CD, Cardizem LA, Cardizem SR), Aspirin (By mouth) (Georgette Extra Strength, Georgette Aspirin Children's,..., Cefdinir (By mouth) (Omnicef), Opioid Safety Activity Restrictions/Additional Instructions: -Take aspirin 81 mg daily ? If you have any strokelike symptoms please call 911 ?continue Cardizem to 240 mg daily -Please abstain from caffeine use Discharge Attestations Time Spent in Discharge Care*: greater than 30 min Quality Metrics Clinical Quality Measures [ No reported AMI, CVA or VTE this stay] Coding Level of Care Code 62857 Total time (in minutes) for Discharge: 45 Diagnoses Atrial fibrillation with RVR I48.91 Anxiety and depression F41.9; F32.A
[2023-11-25] MEDS: aspirin 81 mg EC Tablet PO (08:28)
[2023-11-25] MEDS: citalopram 20 mg Tablet 10 MG PO (08:28)
== END 2023-11-25 08:30 | disposition home or self-care (01) ==
LOC: ER 13:44 → ICU 18:35 → CSU 21:52
PROVIDERS: Admitting Provider Family Medicine; Emergency Provider Family Medicine; PCP Family Medicine; Visit Provider Family Medicine
DX: I48.0 Paroxysmal atrial fibrillation (principal); F41.9 Anxiety disorder, unspecified; F32.A Depression, unspecified; Z63.5 Disruption of family by separation and divorce; Z73.3 Stress, not elsewhere classified; Z79.01 Long term (current) use of anticoagulants
CPT/HCPCS: 36415; 71045; 80053; 80061; 80306; 80307; 81001; 83036; 83735; 83880; 84443; 84484; 85025; 87086; 93005; 93306; 94664; 96365; 96372; 96375; 96376; 99285; C9113; G0378; J0696; J1650; J1940; J3490

== ENCOUNTER 2025-03-09 15:38 | Emergency (ER) | payer BC, MEDICAID, SELFPAY ==
[2025-03-09] VITALS (15 sets, daily range): BP systolic 111–144; BP diastolic 79–98; PULSE 79–167; RESP 16–38; TEMP 36.7; O2SAT 96–100; BMI 34.1
--- NOTE | 2025-03-09 15:39 | ECG_ITS ---
[facility] Date: 2025-03-09 Pat Name: Annia Hayes Department: Room: Gender: Female Sports Information Director: : 1980 Requested By: David Sinclair Order Number: [id number] Nery MD: Tiffani Buitrago M.D. Measurements Intervals [place] Rate: 160 P: 0 [place]: 0 QRS: 1 QRSD: 87 T: 55 QT: 266 QTc: 434 Interpretive Statements ATRIAL FIBRILLATION WITH RAPID VENTRICULAR RESPONSE NONSPECIFIC ST & T-WAVE ABNORMALITY CRITICAL TEST RESULT Compared to ECG 11/24/2023 16:59:26 Aberrant conduction of supraventricular beat(s) no longer present Ventricular premature complex(es) no longer present T-wave abnormality still present Electronically Signed On 03-09-2025 21:19:18 CDT by Tiffani Buitrago M.D. [email or web address]
--- NOTE | 2025-03-09 15:43 | XRR_ITS ---
PROCEDURE INFORMATION: Exam: XR Chest Exam date and time: 03/09/2025 3:55 PM Age: 44 years old Clinical indication: Pain; Chest pressure; Additional info: Afib TECHNIQUE: Imaging protocol: Radiologic exam of the chest. Views: 1 view. Total images: 1 COMPARISON: CR XR chest 1V portable [id number] 11/24/2023 12:23 PM FINDINGS: Lungs: Unremarkable. No consolidation. Pleural spaces: Unremarkable. No pleural effusion. No pneumothorax. Heart/Mediastinum: Unremarkable. No cardiomegaly. Bones/joints: Unremarkable. XR/XR chest 1V portable [id number] IMPRESSION: No acute cardiopulmonary disease or adverse interval change radiographically.
--- OUTSIDE RECORDS SUMMARY | 2025-03-09 15:43 | XMS_ITS | Clinical Summary ---
Author Organization [facility] Address [address] Attn: Epic Prelude ADT [place]ECT[place] [address] Care Team Providers Care Mannequin Mold Maker Name Role Phone Unavailable Primary Care Provider Unavailabl e Allergies No known active allergies Medications Cartia XT 240 mg Controlled Delivery 24 hour capsule Take 1 Capsule by mouth daily. 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, in partial remission 08/20/2019 Panic disorder 08/20/2019 Migraine equivalent syndrome 08/20/2019 Obesity (BMI 35.0-39.9 without comorbidity) 08/03 PAF (paroxysmal atrial fibrillation) 08/30/2013 HTN (hypertension) 08/30/2013 Resolved Problems Problem Noted Date Diagnosed Date Resolved Date Supervision of other normal 02/05/2010 10/21/2010 Encounters Date Type Department Care Team Description 01/07/2025 External Device Data STL ABSTRACTION Provider, Abstract 12/18/2024 External Device Data STL ABSTRACTION Provider, Abstract 12/18/2024 External Device Data STL ABSTRACTION Provider, Abstract from Last 3 Months Immunizations Immunization Administration Dates Next Due (ADACEL/BOOSTRIX)(10 YR UP) TDAP VACCINE, 0.5ML, IM 09/11/2010 (M-M-R II/PRIORIX)(12 MO UP) MEASLES, MUMPS AND RUBELLA VIRUS VACCINE, 0.5 ML IM/SUBCUT 09/11/2010 INFLUENZA VACCINE QUADRIVALENT 6 MOS UP PF IM Family History Medical History Relation Name Comments Diabetes Maternal Grandfather Hypertension Maternal Grandfather Diabetes Maternal Grandmother Hypertension Maternal Grandmother Diabetes Mother Heart Disease Mother High Cholesterol Mother Hypertension Mother Cancer Paternal Grandfather ??? Breast Cancer Neg Hx neg responses- see media tab Colon Cancer Neg Hx Ovarian Cancer Neg Hx Relation Name Status Comments Father Alive Maternal Grandfather Alive Maternal Grandmother Alive Mother Alive Paternal Grandfather Paternal Grandmother Alive Sister Alive Social History Tobacco Use Types Packs/Day Years Used Date Smoking Tobacco: Never Smokeless Tobacco: Never Tobacco Cessation:Counseling Given: Not Answered Alcohol Use Standard Drinks/Week Comments No 0 (1 standard drink = 0.6 oz pur e alcohol) Comments No Sex and Gender Information Value Date Recorded Sex Assigned at Not on file Legal Sex Female 2:13 AM PAWN SHOP KEEPER Gender Identity Not on file Sexual Orientation Not on file Last Filed Vital Signs Vital Sign Reading Time Taken Comments Blood Pressure 112/74 04/25/2024 11:06 AM PAWN SHOP KEEPER Pulse 90 08/20/2019 1:42 PM CDT Temperature 36.1 C (97 F) 08/20/2019 1:42 PM CDT Respiratory Rate 16 08/20/2019 1:42 PM CDT Oxygen Saturation - - Inhaled Oxygen Concentration - - Weight 106.6 kg (235 lb) 04/25/2024 11:06 AM PAWN SHOP KEEPER Height 170.2 cm (5' 7 ) 04/25/2024 11:06 AM PAWN SHOP KEEPER Body Mass Index 36.81 04/25/2024 11:06 AM PAWN SHOP KEEPER Plan of Treatment Upcoming Encounters Date Type Department Care Team (Late st Contact Info) Description 09/29/2025 1:40 PM CDT Office Visit [facility] OBNo-Hiram [address] [place] [address] [address] [place] [address] Marta Garza APRN[address] [place] [address] Health Maintenance Due Date Last Done Comments HEPATITIS B VACCINES (1 of 3 - 19+ 3-dose series) 1998 HPV VACCINES (1 - 3-dose SCD M series) 2006 DTAP/TDAP/TD VACCINES (2 - T d or Tdap) 09/11/2020 09/11/2010 Pre-Diabetes and Diabetes Screening 08/19/2022 08/20/2019 BREAST CANCER SCREENING 12/28/2022 12/29/19 22, 08/21/2020, 08/21/2020, Additional history exists COLORECTAL SCREENING 2024 Colorectal Cancer Screening 2024 FIT-DNA Q 3 years 2024 FIT/FOBT Q 1 year 2024 Flex Sig/CT Colonography Q 5 years 2024 INFLUENZA VACCINE (#1) 2025 02/28/2019 PAP SMEAR 04/20/2026 04/20/2023, 07/06, 07/22/2019, Additional history exists CERVICAL CANCER SCREENING 04/20/2028 HPV/Cotest (21-29) 04/20/2028 04/20/2023, 0 07/22/2019, 07/22/2019, Additional history exists HPV/Cotest (30-65) 04/20/2028 04/20/2023, 0 07/22/2019, 07/22/2019, Additional history exists Procedures Procedure Name Priority Date/Time Associated Diagnosis Comments CERV/VAG CYTO AGE BASED SCREEN PAP Routine 04/20/2023 2:58 PM PAWN SHOP KEEPER Well woman exam with routine gynecological exam MAMMO 3D PREMA SCREEN BILAT W OR WO CAD Routine 12/28/2021 12:23 PM CDT Encounter for screening mammogram for malignant neoplasm of breast HEMOGLOBIN A1C Routine 08/20/2019 2:51 PM CDT from Last 3 Months or Most Recently Relevant to Health Maintenance Results * CERV/VAG CYTO AGE BASED SCREEN PAP (04/20/2023 2:58 PM PAWN SHOP KEEPER) COMMENT (PAP): [facility] Comment: This order for age-based cervical cancer and STI screening follows ACOG guidelines(PB 168, 140, GSN820). See individual assays for performing site location. CLINICAL INFORMATION [facility] Comment:Information not prov ided LAST MENSTRUAL PERIOD [facility] Comment:01/17/2023 PREV PAP: [facility] Comment:INFORMATION NOT PROV IDED PREV BX: [facility] Comment:INFORMATION NOT PROV IDED SOURCE [facility] Comment:Endocervix ADEQUACY: [facility] Comment: Satisfactory for evaluation. Endocervical/transformation zone component present. PAP INTERP [facility] Comment: Cytology Results: Negative for intraepithelial lesion or malignancy. COMMENT (PAP TEST) [facility] Comment: This Pap test has been evaluated with computer assisted technology. CERTIFIED ORTHOPTIST: Yared est Raiza Wolff Comment: MVB, CT(ASCP) CT Screening Location: [place] [address] [place] [address] EXPLANATORY NOTE [facility] Comment: EXPLANATORY NOTE: The Pap is a screening test for cervical cancer. It is not a diagnostic test and is subject to false negative and false positive results. It is most reliable when a satisfactory sample, regularly obtained, is submitted with relevant clinical findings and history, and when the Pap result is evaluated along with historic and current clinical information. HPV E6/E7 Not Detected Not Detected [facility] New Comment: Methodology: Plush Dresser-Mediated Amplification This assay detects E6/E7 viral messenger RNA (mRNA) from 14 high-risk HPV types (16,18,31,33,35,39,45,51,52,56,58,59,66,68). Cervical sources are required for HPV testing. If a vaginal source from a patient who has had a total hysterectomy with removal of cervix was submitted, please contact the testing laboratory for alternative testing options. For additional information, please refer to http://education.StudySoup/faq/AKZ144e5 (This link if provided for information/ educational purposes only.) Test Performed at: [facility] [address] [place] [address] Lee ROBLEDO Genital SWAB OF ENDOCERVIX / Unknown 04/20/2023 2:58 PM PAWN SHOP KEEPER 04/21/2023 9:27 AM PAWN SHOP KEEPER Marta Garza APRN- PATHOLOGY/CYTOLOGY ORD ERABLES Final Result [facility] [phone] [facility] [address] [place] [address] * MAMMO SCRN BILAT 3D PREMA W OR WO CAD (12/28/2021 12:23 PM CDT) Anatomical Region Laterality Modality Breast Bilateral Mammography Narrative 01/04/2022 10:38 AM CDT Bilateral Digital Mammogram with CAD and 3D Tomography Reason for Exam: Screening Comparison: Compared to: 08/21/2020 MAMMO SCRN BILAT 3D PREMA W OR WO CAD and 07/22/2019 MAMMO SCRN BILAT 3D PREMA W OR WO CAD Technique: 3D MLO and CC digital tomosynthesis images were acquired and synthesized 2D images (C view) were generated. This digital mammogram was also analyzed by the Computer Aided Detection System CAD). Breast Composition: There are scattered areas of fibroglandular density. There are no suspicious masses, areas of architectural distortions, or microcalcifications to suggest malignancy. No significant new findings since the prior mammogram(s). No significant new findings since the prior mammogram(s). Impression: Negative screening mammogram. Recommendation: Routine annual follow-up Overall Assessment: Birads Category 1: Negative us Lucisu Olson MD MAMMO ORDERABLES Final Resul t * HEMOGLOBIN A1C (08/20/2019 2:51 PM CDT) HEMOGLOBIN A1C 4.7 See Comment % 08/20/2019 3:[address] [facility] EST. AVG GLUCOSE, A1C 88 mg/dL 08/20/2019 3:[address] [facility] Blood Venipuncture / Unknown 08/20/2019 2:51 PM CDT 08/20/2019 3:[address] [facility] - 08/20/2019 3:17 PM CDT HGB A1C INTERPRETATION NORMAL: <5.7% PRE-DIABETES: 5.7 - 6.4% DIABETES: 6.5% OR GREATER Falsely low A1C measurements can occur when: 1. Anemia and/or hemolytic anemia is present. 2. Hemoglobin variants present. 3. Renal failure. 4. Transfusion of blood product in the last 120 days. We recommend ordering a fructosamine test([id number]) to more accurately assess glycemic status if any of the above conditions are present. Bill Kirkpatrick DO CHEMISTRY ORDERABLES Fin al Result [facility] EARLENE# [id number] [address] [place] [address] from Last 3 Months or Most Recently Relevant to Health Maintenance Insurance [facility] [employer] MEDICA[place]
--- OUTSIDE RECORDS SUMMARY | 2025-03-09 15:43 | XMS_ITS | Encounter Summary ---
Author Organization [facility] Address [address] [place] [address] Care Team Providers Care Radiation Physicist Name Role Phone Bill Kirkpatrick DO Primary Care Provider U navailable Encounter Details Date Type Department Care Team (Late st Contact Info) Description 05/18/2007 Outpatient Historical [facility] OBGYN-[address] [address] Lucius Olson MD [address] [address] Social History Tobacco Use Types Packs/Day Years Used Date Smoking Tobacco: Never Assessed Comments Unknown Sex and Gender Information Value Date Recorded Sex Assigned at Not on file Legal Sex Female 6:17 AM SPREADER Gender Identity Not on file Sexual Orientation Not on file documented as of this encounter Plan of Treatment Not on file documented as of this encounter Visit Diagnoses Not on filedocumented in this encounter Care Teams Radiation Physicist Relationship Specialty Start Date End Date Bill Kirkpatrick DO PCP - General Family Practice 08/20/19 08/20/20 documented as of this encounter
--- OUTSIDE RECORDS SUMMARY | 2025-03-09 15:43 | XMS_ITS | Encounter Summary ---
Author Organization [facility] Address [address] [place] [address] Care Team Providers Care Roll Slicing Machine Tender Name Role Phone Bill Kirkpatrick DO Primary Care Provider U locoailgeoffrey Encounter Details Date Type Department Care Team (Latest Contact Info) Description 03/19/2007 Outpatient Historical [facility] OBGYN-[place] [address] [address] Lucius Oslon MD [address] [address] Supervision of Other Normal (Primary Dx) Social History Tobacco Use Types Packs/Day Years Used Date Smoking Tobacco: Never Assessed Comments Unknown Sex and Gender Information Value Date Recorded Sex Assigned at Not on file Legal Sex Female 6:17 AM MACHINE SHOP SUPERVISOR Gender Identity Not on file Sexual Orientation Not on file documented as of this encounter Plan of Treatment Not on file documented as of this encounter Visit Diagnoses Diagnosis Supervision of other normal - Primary documented in this encounter Care Teams Roll Slicing Machine Tender Relationship Specialty Start Date End Date Bill Kirkpatrick DO PCP - General Family Practice 08/20/19 08/20/20 documented as of this encounter
--- OUTSIDE RECORDS SUMMARY | 2025-03-09 15:43 | XMS_ITS | Encounter Summary ---
Author Organization [facility] Address [address] [place] [address] Care Team Providers Care Parking Enforcement Manager Name Role Phone Bill Kirkpatrick DO Primary Care Provider U navailable Encounter Details Date Type Department Care Team (Late st Contact Info) Description 06/15/2007 Outpatient Historical [facility] OBGYN-[address] [address] Lucius Olson MD [address] [address] Social History Tobacco Use Types Packs/Day Years Used Date Smoking Tobacco: Never Assessed Comments Unknown Sex and Gender Information Value Date Recorded Sex Assigned at Not on file Legal Sex Female 6:17 AM INTERNET RESEARCHER Gender Identity Not on file Sexual Orientation Not on file documented as of this encounter Plan of Treatment Not on file documented as of this encounter Visit Diagnoses Not on filedocumented in this encounter Care Teams Parking Enforcement Manager Relationship Specialty Start Date End Date Bill Kirkpatrick DO PCP - General Family Practice 08/20/19 08/20/20 documented as of this encounter
--- OUTSIDE RECORDS SUMMARY | 2025-03-09 15:43 | XMS_ITS | Data Portability ---
Author Organization [facility] Artur Sanchez [facility], [facility] Address [address] [facility] [address] [place] [address] Care Team Providers Care Squeegeer And Former Name Role Phone FELIX HURT Primary Care Provider [phone] Assessment No assessment recorded. Plan of Treatment Reminders Order Date Submit Date Provider Last Modified By Organization Details Last Modified Time Details Appointments None recorded. Lab None recorded. Referral None recorded. Procedures None recorded. Surgeries None recorded. Imaging None recorded. Medication Orders Augmentin 875 mg-125 mg tablet 2024 025 [facility], [address], [place], [address], 5 09:20:55 prednisone 20 mg tablet 2024 025 [facility], [address], [place], [address], 5 09:20:57 Patient TargetsNo targets recorded. Patient InstructionsNo instructions recorded. Reason for Referral None Reported. Problems Name Problem SNOMED Code Status Onset Date Resolution Date Notes Provider Name and Address Organization Details Recorded Time Hypoglycem ia [id number] Active 2012 Hypoglyce salvador; 3 10:36AM by Hallie Hudson LPN, Phone Encounter ; Promoted; acuity set as *; Not Available [facility] 3 03:18:17 Problem Notes None recorded. Medical Equipment None Reported. Allergies No known drug allergies Medications Name Sig Start Date Stop Date Status Note LastModified by Organization Details LastModified Time medroxypr ogesteron e 10 mg tablet TAKE 1 TABLET BY MOUTH ONCE DAILY FOR 10 DAYS .TAKE ON CALENDER DAYS 1-10 FOR 3 MONTHS active Not Available Not Available No t Available Augmentin 875 mg-125 mg tablet Take 1 tablet every 12 hours by oral route for 7 days. 2024 active Not Available Not Available Not Avai lable citalopra m 10 mg tablet TAKE 1 TABLET BY MOUTH ONCE DAILY 06/11 completed Not Available Not Available Not Available Loestrin Fe 06/24 (28-Day) 1 mg-20 mcg (21)/75 mg (7) tablet active 0; Recorded 01/01/20 13 9:09AM by Anayeli Gibson RN, Office Visit; Not Available Not Available Not Available prednison e 20 mg tablet Take 2 tablets every day by oral route for 5 days. 2024 active Not Available Not Available Not Avai lable sertralin e 100 mg tablet at bedtime 06/11 completed Recorded 01/01/20 13 9:09AM by Anayeli Gibson RN, Office Visit; Refill Quantity : 30; Tablet; Not Available Not Available Not Available aspirin 81 mg tablet,de layed release TAKE 1 TABLET BY MOUTH ONCE DAILY FOR 30 DAYS 06/11 completed Not Available Not Available Not Available propranol ol 10 mg tablet TAKE 1 TABLET BY MOUTH TWICE DAILY 06/11 completed Not Available Not Available Not Available Cartia XT 240 mg capsule,e xtended release TAKE 1 CAPSULE BY MOUTH ONCE DAILY 06/11 completed Not Available Not Available Not Available Vistaril 25 mg capsule at bedtime prn 06/11 completed Recorded 01/01/20 13 9:09AM by Anayeli Gibson RN, Office Visit; Refill Quantity : 0; Not Available Not Available Not Available methylpre dnisolone 4 mg tablets in a dose pack 06/11 completed Not Available Not Available Not Available cefdinir 300 mg capsule TAKE 1 CAPSULE BY MOUTH TWICE DAILY FOR 5 DAYS 06/11 completed Not Available Not Available Not Available Vitals Date Recorded Body height Body mass index (BMI) Body weight Oxygen saturation Oxygen saturation in Arterial blood by Pulse oximetry Heart rate Body temperature Systolic And Diastolic Provider Name and Address Organization Details Last Updated DateTime 01/07/202 5 170.18 cm 34.9 kg/m2 203896. 8 g 98 % 98 % 80 /min 98.2 [degF] 124/68 mm[Hg] Haley Chávez RODNEY [facility], Sushant 09:14:04 Social History None recorded. Functional Status None recorded. Mental Status None recorded. Family History Nothing Reported. Medical History No medical history recorded. Gynecological HistoryNo gynecological history recorded. Obstetrics History GPAL:G 0 P 0 0 0 0 Immunizations Vaccine Type Date Status Note Provider Nam e and Address Organization Details Recorded Time Influenza, split virus, trivalent, preservative 0 completed Not Available [employer] 12/31/2022 02:32:59 Past Encounters Encounter ID Performer Location Encounter Start Date Encounter Closed Date Diagnosis/Indication Diagnosis SNOMED-CT Code Diagnosis ICD10 Code Diagnosis IMO Codes Diagnosis Note [id number] CHRISTIN CALVILLO [facility] [address] [place] [address] 06/11/2024 09:04:24 06/12/2024 22:36:21 Acute pansinusitis 8042218 J01.40 Discussed use of antibiotic . Take with food.May use Humphrey's nasal inserts and also apply on chest. Push oral fluids. Consider nasal saline rinses and otc decongesta nt.Use tylenol/mo nabila for jane. Health Concerns Section Related Observation LastModified by Organization Detai ls LastModified Time None Recorded Concern Status LastModified by Organization Details LastModified Time None Recorded Advance Directives Directive None Recorded Payers Insurance Date Sequence Insurance Name Policy Number Policy Jolly Covered Member ID Jolly Member ID Guarantor Name 06/11/2024 1 [place] [id number] 1 Annia Hayes [id number] Annia Hayes Notes Date Note Type Note Provider Name and Address Organization Details Recorded Time 06/11/2024 text/html ROS as noted in the HPI Walk inx 1 week sinus pressure, cough, sweat/chills, body aches. has been taking otc meds. Is drinking well but decreased appetite. cough is dry. CHRISTIN CALVILLO [address] [place] [address], [phone], RODNEY - [facility], Sushant 06/12/2024 12:57:02 OBGyn Episode No OBEpisode recorded.
--- OUTSIDE RECORDS SUMMARY | 2025-03-09 15:43 | XMS_ITS | Encounter Summary ---
Author Organization [facility] Address [address] [place] [address] Care Team Providers Care Tower Truck Driver Name Role Phone Bill Kirkpatrick DO Primary Care Provider U navailable Encounter Details Date Type Department Care Team (Late st Contact Info) Description 05/18/2007 Outpatient Historical [facility] M[facility] and Medicine[facility] [address] [place] [address] Social History Tobacco Use Types Packs/Day Years Used Date Smoking Tobacco: Never Assessed Comments Unknown Sex and Gender Information Value Date Recorded Sex Assigned at Not on file 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
--- OUTSIDE RECORDS SUMMARY | 2025-03-09 15:43 | XMS_ITS | Encounter Summary ---
Author Organization [facility] Address [address] Attn: [place] [address] Care Team Providers Care Sustain Engineer Name Role Phone KayaBill lawrence Primary Care Provider U locoailgeoffrey Encounter Details Date Type Department Care Team (Late st Contact Info) Description 11/12/2007 Outpatient Historical Lucius Olson MD [address] [address] Routine Follow-Up Social History Tobacco Use Types Packs/Day Years Used Date Smoking Tobacco: Never Alcohol Use Standard Drinks/Week Comments No 0 (1 standard drink = 0.6 oz pur e alcohol) Comments No Sex and Gender Information Value Date Recorded Sex Assigned at Not on file Legal Sex Female 6:[address] LIGHT WIRER Gender Identity Not on file Sexual Orientation Not on file documented as of this encounter Plan of Treatment Not on file documented as of this encounter Procedures Procedure Name Priority Date/Time Associated Diagnosis Comments PATHOLOGY Routine 11/12/2007 10:56 PM CDT documented in this encounter Results * PATHOLOGY (11/12/2007 10:56 PM CDT) PATHOLOGY/BRIAN NOLAND REPORT [facility] Anatomic Pathology Dept [address] [facility] [address] Patient: INDIA RUEDA Accn No: [id number] Collected: 11/12/2007 10:56:00 PM CYTOLOGY BIOCHEMISTRY TECHNICIAN FINAL REPORT - - EDGER FEEDER PAP History Specimen Source: None Provided Post- Last Pap Date: None Provided Specimen Adequacy Satisfactory for interpretation. The smear lacks endocervical or metaplastic cells. Diagnosis NEGATIVE FOR INTRAEPITHELIAL LESION OR MALIGNANCY. (Previously noted as Within Normal Limits) Museum Educator 11/13/07 Completed by: SINGH OQUENDO (Electronically signed by) 11/13/07 Comment Repeat Pap smear within 6-12 months. Important Info About Pap Smears HPV Testing off the Thin Prep vial can be done as a means of further evaluating a Thin Prep Report. For information about ordering the HPV test, phone Cytology at . Treatment or follow-up recommendations (if any) that are considered within this report are based upon general recommendations as contained in 2001 Consensus Guidelines For Cervical Cytological Abnormalities ROSETTE: September 26, 2001, and are provided as a general guideline rather than as a specific recommendation. Final decisions about the most appropriate treatment and follow-up should be made on an individualized basis by the treating physician in consultation with his/her patient. INTERFACE SYSTEM 11/12/2007 10:5 6 PM CDT us Lucius Olson MD PATHOLOGY/CYTOLOGY ORDERABLE S Final Result INTERFACE SYSTEM Refer to clinic/hospital department documented in this encounter Visit Diagnoses Diagnosis Routine follow-up documented in this encounter Care Teams Sustain Engineer Relationship Specialty Start Date End Date Bill Kirkpatrick DO PCP - General Family Practice 08/20/19 08/20/20 documented as of this encounter
--- OUTSIDE RECORDS SUMMARY | 2025-03-09 15:43 | XMS_ITS | Encounter Summary ---
Author Organization [facility] Address [address] [place] [address] Care Team Providers Care Taper Machine Name Role Phone Bill Kirkpatrick DO Primary Care Provider U navailable Encounter Details Date Type Department Care Team (Latest Contact Info) Description 12/15/2006 Outpatient Historical [facility] [address] [place] [address] Malcolm Bourgeois, Nicolas Lucero MD [address] [place] [address] Unspecified Enthesopathy of Knee (Primary Dx); Generalized Anxiety Disorder Social History Tobacco Use Types Packs/Day Years Used Date Smoking Tobacco: Never Assessed Comments Unknown Sex and Gender Information Value Date Recorded Sex Assigned at Not on file 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
--- OUTSIDE RECORDS SUMMARY | 2025-03-09 15:43 | XMS_ITS | Encounter Summary ---
Author Organization [facility] Address [address] [place] [address] Care Team Providers Care Vocational Services Specialist Name Role Phone Unavailable Primary Care Provider Unavailabl e Reason for Referral * Radiology Services (Routine) - Closed Specialty Diagnoses / Procedures Referred By Oscar lemon Referred To Contact Diagnoses Visit for screening mammogram Procedures MAMMO SCRN BILAT 3D PREMA W OR WO CAD MAMMO SCRN BILAT 3D PREMA W OR WO CAD CHG SCREENING MAMMOGRAPHY BI 2-VIEW BREAST INC CAD CHG SCREENING DIGITAL BREAST TOMOSYNTHESIS BI CHG SCREENING MAMMOGRAPHY BI 2-VIEW BREAST INC CAD CHG SCREENING DIGITAL BREAST TOMOSYNTHESIS BI Lucius Olson MD [address] [facility] [address] [place] [address] Phone: tel: fax: Referral ID Status Reason Start Date Expiration Date Visits Re quested Visits Authorized [id number] Closed 07/01/2020 08/01/2021 1 1 RINARIAN EPIDEMIOLOGIST Encounter Details Date Type Department Care Team (Late st Contact Info) Description 08/21/2020 Ancillary Orders [facility] [address] [facility] [address] [place] [address] Lucius Olson MD [address] [facility] [address] [place] [address] Visit for screening mammogram Social History Tobacco Use Types Packs/Day Years Used Date Smoking Tobacco: Never Smokeless Tobacco: Never Alcohol Use Standard Drinks/Week Comments No 0 (1 standard drink = 0.6 oz pur e alcohol) Comments No Sex and Gender Information Value Date Recorded Sex Assigned at Not on file Legal Sex Female 6:17 AM VETERINARIAN EPIDEMIOLOGIST Gender Identity Not on file Sexual Orientation Not on file COVID-19 Exposure Response Date Recorded In the last month, have you been in contact with someone who was confirmed or suspected to have Coronavirus / COVID-19? No / Unsure 08/21/2020 10:25 AM CDT documented as of this encounter Plan of Treatment Not on file documented as of this encounter Results * MAMMO SCRN BILAT 3D PREMA W OR WO CAD (08/21/2020 11:18 AM CDT) Anatomical Region Laterality Modality Breast Bilateral Mammography Narrative 08/24/2020 1:14 PM CDT Bilateral Digital Mammogram with CAD and 3D Tomography Reason for Exam: Screening Comparison: Compared to: 07/22/2019 MAMMO SCRN BILAT 3D PREMA W OR WO CAD Technique: 3D MLO and CC digital tomosynthesis images were acquired and synthesized 2D images (C view) were generated. This digital mammogram was also analyzed by the Computer Aided Detection System CAD). Breast Composition: The breasts are almost entirely fatty. There are no suspicious masses, areas of architectural distortions, or microcalcifications to suggest malignancy. No significant new findings since the prior mammogram(s). us Lucius Olson MD MAMMO ORDERABLES Final Resul t documented in this encounter Visit Diagnoses Diagnosis Visit for screening mammogram Other screening mammogram Visit for screening mammogram Other screening mammogram documented in this encounter
--- OUTSIDE RECORDS SUMMARY | 2025-03-09 15:43 | XMS_ITS | Encounter Summary ---
Author Organization [facility] Address [address] [place] [address] Care Team Providers Care Milk Powder Grinder Name Role Phone Bill Kirkpatrick DO Primary Care Provider U locoailgeoffrey Encounter Details Date Type Department Care Team (Latest Contact Info) Description 04/20/2007 Outpatient Historical [facility] OBGYN[place] [address] [address] Lucius Olson MD [address] [address] Supervision of Other Normal (Primary Dx) Social History Tobacco Use Types Packs/Day Years Used Date Smoking Tobacco: Never Assessed Comments Unknown Sex and Gender Information Value Date Recorded Sex Assigned at Not on file Legal Sex Female 6:17 AM RESEARCH CENTER PARTNER Gender Identity Not on file Sexual Orientation Not on file documented as of this encounter Plan of Treatment Not on file documented as of this encounter Visit Diagnoses Diagnosis Supervision of other normal - Primary documented in this encounter Care Teams Milk Powder Grinder Relationship Specialty Start Date End Date Bill Kirkpatrick DO PCP - General Family Practice 08/20/19 08/20/20 documented as of this encounter
--- OUTSIDE RECORDS SUMMARY | 2025-03-09 15:43 | XMS_ITS | Encounter Summary ---
Author Organization [facility] Address [address] [place] [address] Care Team Providers Care Therapy Director Name Role Phone Bill Kirkpatrick DO Primary Care Provider U navailable Reason for Referral * Radiology Services (Routine) - Closed Specialty Diagnoses / Procedures Referred By Contmathew t Referred To Contact Diagnoses Screening for breast cancer Procedures MAMMO SCRN BILAT 3D PREMA W OR WO CAD MAMMO SCREEN BILAT W OR WO CAD CHG SCREENING MAMMOGRAPHY BI 2-VIEW BREAST INC CAD CHG SCREENING DIGITAL BREAST TOMOSYNTHESIS BI Stacie Shrestha NP [address] [address] Phone: tel: fax: [facility] Pre-Registration [place] CALL TO MAKE APPOINTMENT ONLY [address] [place] [address] Phone: tel: fax: Referral ID Status Reason Start Date Expiration Date Visits Re quested Visits Authorized [id number] Closed 07/22/2019 08/21/2020 1 1 R ELECTRIC PRACTITIONER Encounter Details Date Type Department Care Team (Late st Contact Info) Description 07/22/2019 Ancillary Orders [facility] [address] [facility] [address] [place] [address] Stacie Shrestha NP [address] [address] Screening for breast cancer Social History Tobacco Use Types Packs/Day Years Used Date Smoking Tobacco: Never Smokeless Tobacco: Never Alcohol Use Standard Drinks/Week Comments No 0 (1 standard drink = 0.6 oz pur e alcohol) Comments No Sex and Gender Information Value Date Recorded Sex Assigned at Not on file Legal Sex Female 6:17 AM SOLAR ELECTRIC PRACTITIONER Gender Identity Not on file Sexual Orientation Not on file documented as of this encounter Plan of Treatment Not on file documented as of this encounter Results * MAMMO SCRN BILAT 3D PREMA W OR WO CAD (07/22/2019 11:39 AM SOLAR ELECTRIC PRACTITIONER) Anatomical Region Laterality Modality Breast Bilateral Mammography Narrative 07/23/2019 3:32 PM SOLAR ELECTRIC PRACTITIONER Bilateral Digital Mammogram with CAD and 3D Tomography Reason for Exam: Screening Comparison: No prior exam(s) for comparison. Technique: 3D MLO and CC digital tomosynthesis images were acquired and synthesized 2D images (C view) were generated. This digital mammogram was also analyzed by the Computer Aided Detection System CAD).Findings: Breast Composition: The breasts are almost entirely fatty. There are no suspicious masses, areas of architectural distortions, or microcalcifications to suggest malignancy. us Stacie Shrestha DATABASE DBA MAMMO ORDERABLES Final Resu lt documented in this encounter Visit Diagnoses Diagnosis Screening for breast cancer Breast screening, unspecified Screening for breast cancer Breast screening, unspecified documented in this encounter Care Teams Therapy Director Relationship Specialty Start Date End Date Bill Kirkpatrick DO PCP - General Family Practice 08/20/19 08/20/20 documented as of this encounter
--- OUTSIDE RECORDS SUMMARY | 2025-03-09 15:43 | XMS_ITS | Encounter Summary ---
Author Organization [facility] Address [address] [place] [address] Care Team Providers Care Liberal Arts And Humanities Chair Name Role Phone Bill Kirkpatrick DO Primary Care Provider U navailable Encounter Details Date Type Department Care Team (Late st Contact Info) Description 07/13/[address] [facility] OBGYN-[address] [address] Lucius Olson MD [address] [address] Social History Tobacco Use Types Packs/Day Years Used Date Smoking Tobacco: Never Assessed Comments Unknown Sex and Gender Information Value Date Recorded Sex Assigned at Not on file Legal Sex Female 6:17 AM PODIATRIST ASSISTANT Gender Identity Not on file Sexual Orientation Not on file documented as of this encounter Plan of Treatment Not on file documented as of this encounter Visit Diagnoses Not on filedocumented in this encounter Care Teams Liberal Arts And Humanities Chair Relationship Specialty Start Date End Date Bill Kirkpatrick DO PCP - General Family Practice 08/20/19 08/20/20 documented as of this encounter
--- OUTSIDE RECORDS SUMMARY | 2025-03-09 15:43 | XMS_ITS | Encounter Summary ---
Author Organization [facility] Address [address] [place] [address] Care Team Providers Care Evaporator Operator Molasses Name Role Phone Bill Kirkpatrick DO Primary Care Provider U locoailgeoffrey Encounter Details Date Type Department Care Team (Late st Contact Info) Description 08/28/2007 Outpatient Historical HIS IN BED Lucius Olson MD [address] [address] Outcome of Delivery, Single Liveborn Social History Tobacco Use Types Packs/Day Years Used Date Smoking Tobacco: Never Assessed Comments Unknown Sex and Gender Information Value Date Recorded Sex Assigned at Not on file Legal Sex Female 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0 0.0 - 0.2 K/ul [facility] HEMOGLOBIN 11.6(L) 12.0 - 16.0 g/dL [facility] MONOCYTES 8.1 2.0 - 10.0 % [facility] RDW 14.1 11.0 - 14.5 % [facility] MONOCYTE ABSOLUTE 1.0(H) 0.1 - 0.6 K/ul [facility] WBC 12.7(H) 4.5 - 11.0 K/ul [facility] NEUTROPHILS 74.4 42.2 - 75.2 % [facility] MCH 29.1 27.0 - 34.0 pg [facility] NEUTROPHIL ABSOLUTE 9.4(H) 2.0 - 8.0 K/ul [facility] HEMATOCRIT 35.1(L) 36.0 - 46.0 % [facility] PLATELETS 188 140 - 440 K/ul [facility] EOSINOPHIL ABSOLUTE 0.0 0.0 - 0.7 K/ul [facility] EOSINOPHILS 0.3 0.0 - 7.0 % [facility] RBC 3.98(L) 4.20 - 5.40 Mil/ul [facility] MCHC 33.0 30.0 - 35.0 g/dL [facility] LYMPHOCYTE ABSOLUTE 2.2 1.2 - 4.0 K/ul [facility] LYMPHOCYTES 17.1(L) 24.0 - 44.0 % [facility] MCV 88.2 84.0 - 103.0 Fl [facility] BASOPHILS 0.1 0.0 - 1.0 % [facility] MPV 10.7 8.9 - 12.8 Fl [facility] Blood specimen (specimen) 10/02/2007 7:01 AM CDT 10/02/2007 7:06 AM CDT us Lucius Olson MD HEMATOLOGY ORDERABLES Final Result [facility] [address] [place] [address] * (ABNORMAL) BLOOD GAS CORD ARTERIAL (10/01/2007 7:21 PM CDT) PO2 CORD ARTERIAL 20 mmHg [facility] PH CORD ARTERIAL 7.32 7.18 - 7.38 Unit [facility] O2 SAT EST CORD ARTERIAL 28 % [facility] HCO3 CORD ARTERIAL 24.0 17.0 - 27.0 mmol/l [facility] TCO2 CORD 25 mmol/l [facility] PCO2 CORD ARTERIAL 47(H) 32 - 36 mmHg [facility] BASE EXCESS CORD ARTERIAL -2 -2 - 3 mmol/l [facility] SPECIMEN DESCRIPTION Arterial [facility] Comment: Test Performed By [id number] Sample not collected by [facility] Cord blood specimen (specimen) 10/01/2007 7:21 PM CDT 10/01/2007 7:24 PM CDT Lucius Olson MD ABG ORDERABLES Final Result Performing Organization Address [facility] de Phone Number [facility] [address] [place] [address] * BLOOD BANK DRAW ONLY (10/01/2007 7:48 AM CDT) Blood specimen (specimen) 10/01/2007 7:48 AM CDT 10/01/2007 7:52 AM CDT Lucius Olson MD BLOOD BANK ORDERABLES Final Result Performing Organization Address [facility] Co de Phone Number INTERFACE SYSTEM Refer to clinic/hospital department * (ABNORMAL) CBC WITHOUT DIFFERENTIAL (10/01/2007 7:48 AM CDT) LYMPHOCYTE ABSOLUTE 2.1 1.2 - 4.0 K/ul [facility] MCV 88.1 84.0 - 103.0 Fl [facility] MPV 10.9 8.9 - 12.8 Fl [facility] BASOPHILS ABSOLUTE 0.0 0.0 - 0.2 K/ul [facility] BASOPHILS 0.1 0.0 - 1.0 % [facility] HEMOGLOBIN 11.6(L) 12.0 - 16.0 g/dL [facility] RDW 14.2 11.0 - 14.5 % [facility] MONOCYTE ABSOLUTE 0.9(H) 0.1 - 0.6 K/ul [facility] MONOCYTES 9.8 2.0 - 10.0 % [facility] WBC 9.2 4.5 - 11.0 K/ul [facility] MCH 29.4 27.0 - 34.0 pg [facility] NEUTROPHIL ABSOLUTE 6.1 2.0 - 8.0 K/ul [facility] NEUTROPHILS 66.6 42.2 - 75.2 % [facility] HEMATOCRIT 34.7(L) 36.0 - 46.0 % [facility] EOSINOPHILS 0.4 0.0 - 7.0 % [facility] PLATELETS 209 140 - 440 K/ul [facility] EOSINOPHIL ABSOLUTE 0.0 0.0 - 0.7 K/ul [facility] RBC 3.94(L) 4.20 - 5.40 Mil/ul [facility] LYMPHOCYTES 23.1(L) 24.0 - 44.0 % [facility] MCHC 33.4 30.0 - 35.0 g/dL [facility] Blood specimen (specimen) 10/01/2007 7:48 AM CDT 10/01/2007 7:52 AM CDT us Lucius Olson MD HEMATOLOGY ORDERABLES Final Result [facility] [address] [place] [address] * RH (D) TYPE (10/01/2007 7:48 AM CDT) RH (D) TYPE Pos [facility] Blood specimen (specimen) 10/01/2007 7:48 AM CDT 10/01/2007 7:52 AM CDT us Lucius Olson MD BLOOD BANK ORDERABLES Final Result Performing Organization Address City/State/[facility] Co de Phone Number [facility] [address] [place] [address] documented in this encounter Visit Diagnoses Diagnosis Outcome of delivery, single liveborn documented in this encounter Care Teams Evaporator Operator Molasses Relationship Specialty Start Date End Date Bill Kirkpatrick DO PCP - General Family Practice 08/20/19 08/20/20 documented as of this encounter
--- OUTSIDE RECORDS SUMMARY | 2025-03-09 15:43 | XMS_ITS | Clinical Summary ---
Author Organization [facility] Address [address] [place] [address] Care Team Providers Care Director Acute Name Role Phone Unavailable Primary Care Provider Unavailabl e Allergies No known active allergies Medications flecainide (TAMBOCOR) 50 mg Tablet Take 50 mg by mouth every 12 hours. Active aspirin (TR) 325 mg tablet Take 325 mg by mouth daily. Active topiramate (TOPAMAX) 50 mg tablet TK 1 T PO D 06/29/2019 Active metoprolol succinate (TOPROL XL) 25 mg Extended Release 24 hour tablet TK 1 T PO D 06/27/2019 Active cholecalciferol , vitamin D3, 5,000 unit Take 400 Units by mouth daily. Active FLUoxetine (PROzac) 20 mg capsuleIndicati ons:MIGUEL (generalized anxiety disorder),Major depressive disorder with single episode, in partial remission TK 1 C PO D 90 Capsule 1 08/20/2019 Active ALPRAZolam (Xanax) 0.25 mg tabletIndicatio ns:Insomnia due to anxiety and fear,Panic disorder Take 1 Tablet (0.25 mg) by mouth nightly as needed for Anxiety or Insomnia. 30 Tablet 5 08/20/2019 Active Active Problems Problem Noted Date Diagnosed Date Major depressive disorder wi th single episode, in partial remission 08/20/2019 Insomnia due to anxiety and fear 08/20/2019 Migraine equivalent syndrome 08/20/2019 Panic disorder 08/20/2019 Obesity (BMI 35.0-39.9 without comorbidity) 08/03 PAF (paroxysmal atrial fibrillation) 08/30/2013 HTN (hypertension) 08/30/2013 Resolved Problems Problem Noted Date Diagnosed Date Resolved Date Supervision of other normal 02/05/2010 10/21/2010 Immunizations Immunization Administration Dates Next Due (ADACEL/BOOSTRIX)(10 [...] on file Legal Sex Female 6:17 AM 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 TUBE MACHINE TENDER Gender Identity Not on file Sexual Orientation Not on file Last Filed Vital Signs Vital Sign Reading Time Taken Comments Blood Pressure 134/78 08/03/2020 8:46 AM SHOT TUBE MACHINE TENDER Pulse 90 08/20/2019 1:42 PM CDT Temperature 36.1 C (97 F) 08/20/2019 1:42 PM CDT Respiratory Rate 16 08/20/2019 1:42 PM CDT Oxygen Saturation 98% 08/20/2019 1:42 PM CDT Inhaled Oxygen Concentration - - Weight 107 kg (236 lb) 08/03/2020 8:46 AM SHOT TUBE MACHINE TENDER Height 170.2 cm (5' 7 ) 08/03/2020 8:46 AM SHOT TUBE MACHINE TENDER Body Mass Index 36.96 08/03/2020 8:46 AM SHOT TUBE MACHINE TENDER Plan of Treatment Health Maintenance Due Date Last Done Comments HEPATITIS B VACCINES (1 of 3 - 19+ 3-dose series) 1998 HPV VACCINES (1 - 3-dose SCD M series) 2006 DTAP/TDAP/TD VACCINES (2 - T d or Tdap) 09/11/2020 09/11/2010 BREAST CANCER SCREENING 08/21/2021 08/22/19 21, 08/21/2020, 07/22/2019 PAP SMEAR 07/22/2022 07/22/2019, 07/06, 04/02/2018, Additional history exists COLORECTAL SCREENING 2024 Colorectal Cancer Screening 2024 FIT-DNA Q 3 years 2024 FIT/FOBT Q 1 year 2024 Flex Sig/CT Colonography Q 5 years 2024 CERVICAL CANCER SCREENING 07/22/2024 HPV/Cotest (21-29) 07/22/2024 07/22/2019, 1 , 01/04/2016, Additional history exists HPV/Cotest (30-65) 07/22/2024 07/22/2019, 1 , 01/04/2016, Additional history exists INFLUENZA VACCINE (#1) 2025 02/28/2019 Procedures Procedure Name Priority Date/Time Associated Diagnosis Comments MAMMO 3D PREMA SCREEN BILAT W OR WO CAD Routine 08/21/2020 11:18 AM CDT Visit for screening mammogram CERV/VAG CYTO SCREEN PAP W/HPV Routine 07/22/2019 10:47 AM SHOT TUBE MACHINE TENDER Screening for cervical cancer from Last 3 Months or Most Recently Relevant to Health Maintenance Results * MAMMO SCRN BILAT 3D PREMA [...] MD MAMMO ORDERABLES Final Resul t * CERV/VAG CYTO SCREEN PAP W/HPV (07/22/2019 10:47 AM SHOT TUBE MACHINE TENDER) PAP INTERP See Separate Results 07/25/2019 1:47 PM SHOT TUBE MACHINE TENDER [facility] [employer] [facility] Genital SWAB OF ENDOCERVIX / Unknown Collection / Unknown 07/22/2019 10:47 AM SHOT TUBE MACHINE TENDER 07/23/2019 9:35 AM SHOT TUBE MACHINE TENDER Stacie Shrestha NP PATHOLOGY/CYTOLOGY ORDERABL ES Final Result [facility] [employer] [facility] CLIA# [id number] [address] [place], [place] [address] from Last 3 Months or Most Recently Relevant to Health Maintenance Insurance [facility] CHOICE Advance Directives For more information, please contact: [phone] * Full Code (Latest Code Status on File) Date Activated Date Inactivated Comments 09/09/2010 10:03 PM 09/11/2010 1:55 PM * Full Code Date Activated Date Inactivated Comments 09/09/2010 12:29 PM 09/09/2010 10:03 PM * Full Code Date Activated Date Inactivated Comments 09/09/2010 10:20 AM 09/09/2010 12:29 PM
--- OUTSIDE RECORDS SUMMARY | 2025-03-09 15:43 | XMS_ITS | Encounter Summary ---
Author Organization [facility] Address [address] [place] [address] Care Team Providers Care Poultry Scientist Name Role Phone Bill Kirkpatrick DO Primary Care Provider U navailable Encounter Details Date Type Department Care Team (Late st Contact Info) Description 07/27/2007 Outpatient Historical [facility]-[address] [address] Lucius Olson MD [address] [address] Social History Tobacco Use Types Packs/Day Years Used Date Smoking Tobacco: Never Assessed Comments Unknown Sex and Gender Information Value Date Recorded Sex Assigned at Not on file 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
--- NOTE | 2025-03-09 15:59 | W.ED.ARRPALP ---
HPI - Arrhythmia/Palpitations General: Chief Complaint: Arrhythmia/Palpitations Stated Complaint: rapid heart rate Time Seen by Provider: 03/09/25 15:49 Source: patient Mode of arrival: ambulatory Limitations: no limitations History of Present Illness: 44-year-old female has a history of paroxysmal A-fib she states she has not been taking her diltiazem and is ran out states today she started having palpitations starting around 11 heart rate here is in the 140s. She denies any chest pain she denies any shortness of breath has no other complaints at this time. Related Data Previous Rx's ?Medication ?Instructions ?Recorded apixaban 5 mg tablet (Eliquis) 5 mg PO BID #60 tabs 03/09/25 diltiazem HCl 60 mg 60 mg PO BID #60 caps 03/09/25 capsule,extended release 12 hr Allergies Allergy/AdvReac Type Severity Reaction Status Date / Time No Known Allergies Allergy Verified 03/08/24 09:06 Review of Systems Card: Reports: palpitations [facility] ED PFSH: Medical History Paroxysmal atrial fibrillation off of coumadin due to heavy periods Surgical History Hx of cholecystectomy Family History Other CAD (coronary artery disease) Diabetes Hypertension Social History Smoking and tobacco/nicotine status: never used tobacco/nicotine Alcohol intake: never Substance/Drug Use: never Physical Exam Const: COMMON NORMALS: no acute distress, patient oriented x3 and healthy appearing HENMT: COMMON NORMALS: normocephalic and atraumatic HEAD & SCALP: normocephalic and atraumatic Eye: COMMON NORMALS: conjunctivae normal CONJUNCTIVA: Yes conjunctivae normal Neck/C-Spine: COMMON NORMALS: full ROM and supple Chest: COMMONS NORMALS: normal inspection of the chest Resp: COMMON NORMALS: normal respiratory effort Cardio: COMMON NORMALS: No murmurs present (Cardio) RATE: tachycardic RHYTHM: abnormal rhythm irregularly irregular Extremity: COMMON NORMALS: normal to inspection and full ROM Neuro: COMMON NORMALS: patient oriented x3, moves all extremities and no focal motor deficits Psych: COMMON NORMALS: mental status grossly normal, Normal thought process present and cooperative THOUGHT PROCESS: Normal thought process present Skin: COMMON NORMALS: no rashes or lesions noted and no wounds GENERAL SKIN EXAM: no rashes or lesions noted Course Vital Signs: Vital signs: Vital Signs Temperature 98.1 F 03/09/25 15:39 Pulse Rate 100 03/09/25 17:00 Respiratory Rate 24 H 03/09/25 17:00 Blood Pressure 117/87 03/09/25 17:00 Pulse Oximetry 97 03/09/25 17:00 Oxygen Delivery Me thod Room Air 03/09/25 16:50 MDM - Arrhythmia/Palpitations Medical Decision Making Patient presents here with A-fib with RVR she does have a history of paroxysmal A-fib she has not been compliant with her meds does not take her Cardizem. She has no chest pain no shortness of breath no signs of ACS or pulmonary emboli. Heart rate has improved here after Cardizem is in the 80s currently. She still is in A-fib here. I did speak to her PCP Dr. Pierre we will start her on Cardizem 60 mg extended release twice daily also Eliquis 5 mg twice daily. Informed patient it is very important she takes her meds as prescribed. She is stable for discharge at this time I did review her labs with her and EKG and x-ray. X-ray here showed no pneumonia. She is to return if worsening Medical Records I reviewed the patient's medical records. Lab Data I reviewed the patient's lab results. 03/09/25 16:00 03/09/25 16:00 Radiology Impressions Chest X-Ray 03/09/25 15:43 IMPRESSION: No acute cardiopulmonary disease or adverse interval change radiographically. Laboratory Results WBC 8.79 10^3/uL (3.29-11.43) 03/09/25 16:00 RBC 4.87 10^6/uL (3.85-5.65) 03/09/25 16:00 Hgb 14.30 g/dL (11.27-16.99) 03/09/25 16:00 Hct 43.0 % (36-47) 03/09/25 16:00 MCV 88.3 fl (85-98) 03/09/25 16:00 MCH 29.4 pg (27-33) 03/09/25 16:00 MCHC 33.3 g/dL (30-55) 03/09/25 16:00 RDW 12.9 % (12.1-15.1) 03/09/25 16:00 Plt Count 302 10^3/cmm (157-399) 03/09/25 16:00 MPV 10.9 fL (7.4-10.4) H 03/09/25 16:00 Neut % (Auto) 56.1 % 03/09/25 16:00 Lymph % (Auto) 36.2 % 03/09/25 16:00 [place] % (Auto) 6.0 % 03/09/25 16:00 Eos % (Auto) 1.0 % 03/09/25 16:00 Baso % (Auto) 0.5 % 03/09/25 16:00 Neut # (Auto) 4.93 10^3/uL (1.8-7.7) 03/09/25 16:00 Lymph # (Auto) 3.2 10^3/uL (0.8-4.8) 03/09/25 16:00 [place] # (Auto) 0.5 10^3/uL (0.2-0.9) 03/09/25 16:00 Eos # (Auto) 0.1 10^3/uL (0.0-0.8) 03/09/25 16:00 Baso # (Auto) 0.0 10^3/uL (0.0-0.1) 03/09/25 16:00 Nucleated RBC % (auto) 0 % 03/09/25 16:00 Nucleated RBCs # 0.0 /100WBC 03/09/25 16:00 Sodium 142 mmol/L (136-145) 03/09/25 16:00 Potassium 3.8 mmol/L (3.5-5.1) 03/09/25 16:00 Chloride 106 mmol/L (98-107) 03/09/25 16:00 Carbon Dioxide 25 mmol/L (22-29) 03/09/25 16:00 Anion Gap 14.8 (5-19) 03/09/25 16:00 BUN 14 mg/dL (6-20) 03/09/25 16:00 Creatinine 0.7 mg/dL (0.5-0.9) 03/09/25 16:00 GFR Calculation 90.5 mL/min (90-130) 03/09/25 16:00 Glucose 109 mg/dL (65-115) 03/09/25 16:00 Calculated Osmolality 295 mOsm/kg (285-295) 03/09/25 16:00 Calcium 9.0 mg/dL (8.5-10.5) 03/09/25 16:00 Total Bilirubin 0.3 mg/dL (0.15-1.2) 03/09/25 16:00 AST 16 U/L (0-32) 03/09/25 16:00 ALT 19 U/L (0-33) 03/09/25 16:00 Alkaline Phosphatase 93 U/L (35-105) 03/09/25 16:00 Total Protein 7.5 g/dL (6.6-8.7) 03/09/25 16:00 Albumin 4.3 g/dL (3.5-5.2) 03/09/25 16:00 Globulin 3.2 g/dL (1.3-4.6) 03/09/25 16:00 All radiology interpretation(s) finalized by discharge EKG Data EKG 1: I personally reviewed and interpreted this EKG as follows: EKG interpretation date: 03/09/25 EKG interpretation time: 15:44 Interpretation: afib hr [address] or t wave elevation qrs 87 qtc 355 Other EKG comments: Chest X-Ray 03/09/25 15:43 IMPRESSION: No acute cardiopulmonary disease or adverse interval change radiographically. EKG 2: I personally reviewed and interpreted this EKG as follows: EKG interpretation date: 03/09/25 EKG interpretation time: 16:46 Interpretation: afib hr [address] elevation qrs 90 qtc 408 Other EKG comments: Chest X-Ray 03/09/25 15:43 IMPRESSION: No acute cardiopulmonary disease or adverse interval change radiographically. Discharge Plan Discharge Patient Disposition: Home Clinical Impression: Atrial fibrillation with RVR Condition: Stable Prescriptions: New diltiazem HCl 60 mg capsule,extended release 12 hr 60 mg PO BID Qty: 60 0RF Eliquis 5 mg tablet 5 mg PO BID Qty: 60 0RF Discharge Orders: Discharge ED (Routine); Ordered 03/09/25 Ordered By: David Sinclair Referrals: Kushal Pierre MD [Primary Care Provider, Family Practice] - 1-3 days Discharge Diet: Advance as tolerated Discharge Activity: Resume usual activity Patient Instructions: A-fib (Atrial Fibrillation) (ED) Print Language: [place] Citizen Coding Level of Care Code ED Hydro Excavation Operator for Félix Mckee
[2025-03-09] MEDS: dilTIAZem 5 mg/mL SDV 5 mL 15 MG IVP (16:07)
[2025-03-09 16:15] LABS: Hematocrit 43.0 % (36-47); Hemoglobin 14.30 g/dL (11.27-16.99); Mean Corpuscular HGB Conc 33.3 g/dL (30-55); Mean Corpuscular Hemoglobin 29.4 pg (27-33); Mean Corpuscular Volume 88.3 fl (85-98); Nucleated Red Blood Cells % 0 %; Platelet Count 302 10^3/cmm (157-399); Red Blood Count 4.87 10^6/uL (3.85-5.65); White Blood Count 8.79 10^3/uL (3.29-11.43)
[2025-03-09 16:36] LABS: Alanine Aminotransferase 19 U/L (0-33); Albumin Level 4.3 g/dL (3.5-5.2); Alkaline Phosphatase 93 U/L (35-105); Anion Gap 14.8 (5-19); Aspartate Amino Transferase 16 U/L (0-32); Blood Urea Nitrogen 14 mg/dL (6-20); Calcium 9.0 mg/dL (8.5-10.5); Carbon Dioxide 25 mmol/L (22-29); Chloride 106 mmol/L (98-107); Creatinine Clr Calc Pharmacy 122.5881; Globulin 3.2 g/dL (1.3-4.6); Glucose 109 mg/dL (65-115); Osmolality Calculated 295 mOsm/kg (285-295); Potassium 3.8 mmol/L (3.5-5.1); Sodium 142 mmol/L (136-145); Total Protein 7.5 g/dL (6.6-8.7)
== END 2025-03-09 17:31 | disposition home or self-care (01) ==
PROVIDERS: Emergency Provider Emergency Medicine; PCP Family Medicine
DX: I48.20 Chronic atrial fibrillation, unspecified (principal)
CPT/HCPCS: 36415; 71045; 80053; 85025; 93005; 96361; 96374; 99285; J3490; J7030; J9999

== ENCOUNTER → 2025-03-19 16:51 | Outpatient (BNVA) | payer BC, MEDICAID, SELFPAY | PROVIDERS: PCP Family Medicine; Visit Provider Internal Medicine Cardiovascular Disease | DX: R07.9 Chest pain, unspecified (principal); R00.0 Tachycardia, unspecified | CPT/HCPCS: 93005 ==

== ENCOUNTER → 2025-03-21 08:35 | Outpatient (BNVA) | payer BC, MEDICAID, SELFPAY | PROVIDERS: PCP Family Medicine; Visit Provider Family Medicine | DX: I48.0 Paroxysmal atrial fibrillation (principal) | CPT/HCPCS: 80162 ==

== ENCOUNTER 2025-03-23 10:13 | Emergency (ER) | payer BC, MEDICAID, SELFPAY ==
--- NOTE | 2025-03-23 10:18 | ECG_ITS ---
[facility] Test Date: 2025-03-23 Pat Name: Annia Hayes Department: Room: Gender: Female Shoe Puller: : 1980 Requested By: Chasity Doran Order Number: [id number] Nery MD: Tiffani Buitrago M.D. Measurements Intervals [place] Rate: 75 P: 45 [place]: 178 QRS: 3 QRSD: 87 T: 49 QT: 382 QTc: 428 Interpretive Statements SINUS RHYTHM Compared to ECG 03/19/2025 16:56:40 Sinus tachycardia no longer present Electronically Signed On 03-25-2025 19:29:42 CDT by Tiffani Buitrago M.D. [email or web address]
--- OUTSIDE RECORDS SUMMARY | 2025-03-23 10:18 | XMS_ITS | Encounter Summary ---
Author Organization [facility] Address [address] [place] [address] Care Team Providers Care Finishing Supervisor Plastic Sheets Name Role Phone Unavailable Primary Care Provider [...] TOMOSYNTHESIS BI Lucius Olson MD [address] [address] Phone: tel: fax: Referral ID Status Reason Start Date Expiration Date Visits Re quested Visits Authorized [id number] Closed 07/01/2020 08/01/2021 1 1 ITION SETTER Encounter Details Date Type Department Care Team (Late st Contact Info) Description 08/21/[address] [facility] [address] [facility] [address] [place] [address] Lucius Olson MD [address] [facility] [address] [place] [address] Visit for screening mammogram Social History Tobacco Use Types Packs/Day Years Used Date Smoking Tobacco: Never Smokeless Tobacco: Never Alcohol Use Standard Drinks/Week Comments No 0 (1 standard drink = 0.6 oz pur e alcohol) Comments No Sex and Gender Information Value Date Recorded Sex Assigned at Not on file Legal Sex Female 6:17 AM PARTITION SETTER Gender Identity Not on file Sexual Orientation [...]
--- OUTSIDE RECORDS SUMMARY | 2025-03-23 10:18 | XMS_ITS | Encounter Summary ---
Author Organization [facility] Address [address] [place] [address] Care Team Providers Care Back Hoe Machine Operator Name Role Phone Bill Kirkpatrick DO Primary Care Provider U locoailgeoffrey Encounter Details Date Type Department Care Team (Latest Contact Info) Description 03/19/2007 Outpatient Historical [facility] O[facility]-[place] [address] [address] Lucius Olson MD [address] [address] Supervision of Other Normal (Primary Dx) Social History Tobacco Use Types Packs/Day Years Used Date Smoking Tobacco: Never Assessed Comments Unknown Sex and Gender Information Value Date Recorded Sex Assigned at Not on file Legal Sex Female 6:17 AM SPECIAL INSPECTOR Gender Identity Not on file Sexual Orientation Not on file documented as of this encounter Plan of Treatment Not on file documented as of this encounter Visit Diagnoses Diagnosis Supervision of other normal - Primary documented in this encounter Care Teams Back Hoe Machine Operator Relationship Specialty Start Date End Date Bill Kirkpatrick DO PCP - General Family Practice 08/20/19 08/20/20 documented as of this encounter
--- OUTSIDE RECORDS SUMMARY | 2025-03-23 10:18 | XMS_ITS | Encounter Summary ---
Author Organization [facility] Address [address] [place] [address] Care Team Providers Care Java Engineer Name Role Phone Bill Kirkpatrick DO Primary Care Provider U navailable Encounter Details Date Type Department Care Team (Latest Contact Info) Description 12/15/2006 Outpatient Historical [facility] [address] [place] [address] Malcolm Bourgeois, Nicolas Lucero MD [address] [place] [phone] Unspecified Enthesopathy of Knee (Primary Dx); Generalized Anxiety Disorder Social History Tobacco Use Types Packs/Day Years Used Date Smoking Tobacco: Never Assessed Comments Unknown Sex and Gender Information Value Date Recorded Sex Assigned at Not on file Legal Sex Female 6:17 AM FACILITY OPERATIONS MANAGER Gender Identity Not on file Sexual Orientation Not on file documented as of this encounter Plan of Treatment Not on file documented as of this encounter Visit Diagnoses Diagnosis Enthesopathy of knee, unspecified- Primary Generalized anxiety disorder documented in this encounter Care Teams Java Engineer Relationship Specialty Start Date End Date Bill Kirkpatrick DO PCP - General Family Practice 08/20/19 08/20/20 documented as of this encounter
--- OUTSIDE RECORDS SUMMARY | 2025-03-23 10:18 | XMS_ITS | Encounter Summary ---
Author Organization [facility] Address [address] [place] [address] Care Team Providers Care Assistant To The Director Name Role Phone Bill Kirkpatrick DO [...] TOMOSYNTHESIS BI Stacie Shrestha NP [address] [address] Phone: tel: fax: [facility] Pre-Registration [place] CALL TO MAKE APPOINTMENT ONLY [address] [place] [address] Phone: tel: fax: Referral ID Status Reason Start Date Expiration Date Visits Re quested Visits Authorized [id number] Closed 07/22/2019 08/21/2020 1 1 ER Encounter Details Date Type Department Care Team (Late st Contact Info) Description 07/22/2019 Ancillary Orders [facility] [address] [facility] [address] [place] [address] Stacie Shrestha NP [address] [address] Screening for breast cancer Social History Tobacco Use Types Packs/Day Years Used Date Smoking Tobacco: Never Smokeless Tobacco: Never Alcohol Use Standard Drinks/Week Comments No 0 (1 standard drink = 0.6 oz pur e alcohol) Comments No Sex and Gender Information Value Date Recorded Sex Assigned at Not on file Legal Sex Female 6:17 AM WEEDER Gender Identity Not on file Sexual Orientation Not on file documented as of this encounter Plan of Treatment Not on file documented as of this encounter Results * MAMMO SCRN BILAT 3D PREMA W OR WO CAD (07/22/2019 11:39 AM WEEDER) Anatomical Region Laterality Modality Breast Bilateral Mammography Narrative 07/23/2019 3:32 PM WEEDER Bilateral Digital Mammogram with CAD and 3D [...] microcalcifications to suggest malignancy. us Stacie Shrestha PAINTER RAILROAD CAR MAMMO ORDERABLES Final Resu lt documented in this encounter Visit Diagnoses Diagnosis Screening for breast cancer Breast screening, unspecified Screening for breast cancer Breast screening, unspecified documented in this encounter Care Teams Assistant To The Director Relationship Specialty Start Date End Date Bill Kirkpatrick DO PCP - General Family Practice 08/20/19 08/20/20 documented as of this encounter
--- OUTSIDE RECORDS SUMMARY | 2025-03-23 10:18 | XMS_ITS | Encounter Summary ---
Author Organization [facility] Address [address] [place] [address] Care Team Providers Care Motor And Generator Assembler Name Role Phone Bill Kirkpatrick DO Primary Care Provider U navailable Encounter Details Date Type Department Care Team (Late st Contact Info) Description 06/15/2007 Outpatient Historical [facility] OBGYN-[address] [address] Lucius Olson MD [address] [address] Social History Tobacco Use Types Packs/Day Years Used Date Smoking Tobacco: Never Assessed Comments Unknown Sex and Gender Information Value Date Recorded Sex Assigned at Not on file Legal Sex Female 6:17 AM FOLDER HAND Gender Identity Not on file Sexual Orientation Not on file documented as of this encounter Plan of Treatment Not on file documented as of this encounter Visit Diagnoses Not on filedocumented in this encounter Care Teams Motor And Generator Assembler Relationship Specialty Start Date End Date Bill Kirkpatrick DO PCP - General Family Practice 08/20/19 08/20/20 documented as of this encounter
--- OUTSIDE RECORDS SUMMARY | 2025-03-23 10:18 | XMS_ITS | Encounter Summary ---
Author Organization [facility] Address [address] [place] [address] Care Team Providers Care Night Filler Name Role Phone Bill Kirkpatrick DO Primary Care Provider U locoailgeoffrey Encounter Details Date Type Department Care Team (Latest Contact Info) Description 04/20/2007 Outpatient Historical [facility] OBGYN[place] [address] [address] Lucius lOson MD [address] [address] Supervision of Other Normal (Primary Dx) Social History Tobacco Use Types Packs/Day Years Used Date Smoking Tobacco: Never Assessed Comments Unknown Sex and Gender Information Value Date Recorded Sex Assigned at Not on file Legal Sex Female 6:17 AM LINUX UNIX ADMINISTRATOR Gender Identity Not on file Sexual Orientation Not on file documented as of this encounter Plan of Treatment Not on file documented as of this encounter Visit Diagnoses Diagnosis Supervision of other normal - Primary documented in this encounter Care Teams Night Filler Relationship Specialty Start Date End Date Bill Kirkpatrick DO PCP - General Family Practice 08/20/19 08/20/20 documented as of this encounter
--- OUTSIDE RECORDS SUMMARY | 2025-03-23 10:18 | XMS_ITS | Encounter Summary ---
Author Organization [facility] Address [address] [place] [address] Care Team Providers Care Property Disposal Manager Name Role Phone Bill Kirkpatrick DO Primary Care Provider U navailable Encounter Details Date Type Department Care Team (Late st Contact Info) Description 05/18/2007 Outpatient Historical [facility] OBGYN-[address] [address] Lucius Olson MD [address] [address] Social History Tobacco Use Types Packs/Day Years Used Date Smoking Tobacco: Never Assessed Comments Unknown Sex and Gender Information Value Date Recorded Sex Assigned at Not on file Legal Sex Female 6:17 AM THERAPY AIDE Gender Identity Not on file Sexual Orientation Not on file documented as of this encounter Plan of Treatment Not on file documented as of this encounter Visit Diagnoses Not on filedocumented in this encounter Care Teams Property Disposal Manager Relationship Specialty Start Date End Date Bill Kirkpatrick DO PCP - General Family Practice 08/20/19 08/20/20 documented as of this encounter
--- OUTSIDE RECORDS SUMMARY | 2025-03-23 10:18 | XMS_ITS | Encounter Summary ---
Author Organization [facility] Address [address] [place] [address] Care Team Providers Care Step Finisher Name Role Phone Bill Kirkpatrick DO Primary Care Provider U navailable Encounter Details Date Type Department Care Team (Late st Contact Info) Description 07/27/2007 Outpatient Historical [facility] OBGYN-[address] [address] Lucius Olson MD [address] [address] Social History Tobacco Use Types Packs/Day Years Used Date Smoking Tobacco: Never Assessed Comments Unknown Sex and Gender Information Value Date Recorded Sex Assigned at Not on file Legal Sex Female 6:17 AM MASTER FIRE CONTROL TECHNICIAN Gender Identity Not on file Sexual Orientation Not on file documented as of this encounter Plan of Treatment Not on file documented as of this encounter Visit Diagnoses Not on filedocumented in this encounter Care Teams Step Finisher Relationship Specialty Start Date End Date Bill Kirkpatrick DO PCP - General Family Practice 08/20/19 08/20/20 documented as of this encounter
--- OUTSIDE RECORDS SUMMARY | 2025-03-23 10:18 | XMS_ITS | Encounter Summary ---
Author Organization [facility] Address [address] [place] [address] Care Team Providers Care Instrument Lens Grinder Apprentice Name Role Phone Bill Kirkpatrick DO Primary Care Provider U navailable Encounter Details Date Type Department Care Team (Late st Contact Info) Description 07/13/2007 Outpatient Historical [facility] OBGYN-[address] [address] Lucius Olson MD [address] [address] Social History Tobacco Use Types Packs/Day Years Used Date Smoking Tobacco: Never Assessed Comments Unknown Sex and Gender Information Value Date Recorded Sex Assigned at Not on file Legal Sex Female 6:17 AM DEVELOPMENT DISABILITY SPECIALIST Gender Identity Not on file Sexual Orientation Not on file documented as of this encounter Plan of Treatment Not on file documented as of this encounter Visit Diagnoses Not on filedocumented in this encounter Care Teams Instrument Lens Grinder Apprentice Relationship Specialty Start Date End Date Bill Kirkpatrick DO PCP - General Family Practice 08/20/19 08/20/20 documented as of this encounter
--- OUTSIDE RECORDS SUMMARY | 2025-03-23 10:18 | XMS_ITS | Clinical Summary ---
Author Organization [facility] Address [address] [facility] Attn: Epic Prelude ADT [place] [address] Care Team Providers Care First Cook Name Role Phone Unavailable Primary Care Provider [...] on file Legal Sex Female 2:13 AM LOSS PREVENTION/SAFETY DISTRICT MANAGER Gender Identity Not on file Sexual Orientation Not on file Last Filed Vital Signs Vital Sign Reading Time Taken Comments Blood Pressure 112/74 04/25/2024 11:06 AM LOSS PREVENTION/SAFETY DISTRICT MANAGER Pulse 90 08/20/2019 1:42 PM CDT Temperature 36.1 C (97 F) 08/20/2019 1:42 PM CDT Respiratory Rate 16 08/20/2019 1:42 PM CDT Oxygen Saturation - - Inhaled Oxygen Concentration - - Weight 106.6 kg (235 lb) 04/25/2024 11:06 AM LOSS PREVENTION/SAFETY DISTRICT MANAGER Height 170.2 cm (5' 7 ) 04/25/2024 11:06 AM LOSS PREVENTION/SAFETY DISTRICT MANAGER Body Mass Index 36.81 04/25/2024 11:06 AM LOSS PREVENTION/SAFETY DISTRICT MANAGER Plan of Treatment Upcoming Encounters Date Type Department Care Team (Late st Contact Info) Description 09/29/2025 1:40 PM CDT Office Visit [facility] [place] [address] [facility] [address] [place] [address] Marta Garza, [place] [address] [place] [address] Health Maintenance Due Date Last [...] BASED SCREEN PAP Routine 04/20/2023 2:58 PM LOSS PREVENTION/SAFETY DISTRICT MANAGER Well woman exam with routine gynecological exam MAMMO 3D PREMA SCREEN BILAT W OR WO CAD Routine 12/28/2021 12:23 PM CDT Encounter for screening mammogram for malignant neoplasm of breast HEMOGLOBIN A1C Routine 08/20/2019 2:51 PM CDT from Last 3 Months or Most Recently Relevant to Health Maintenance Results * CERV/VAG CYTO AGE BASED SCREEN PAP (04/20/2023 2:58 PM LOSS PREVENTION/SAFETY DISTRICT MANAGER) COMMENT (PAP): [facility] Comment: This order for age-based cervical cancer and STI screening follows ACOG guidelines(PB 168, 140, HDK122). See individual assays for performing site location. CLINICAL INFORMATION [facility] Comment:Information not prov ided LAST MENSTRUAL PERIOD [facility] Comment:01/17/2023 PREV PAP: [facility] Comment:INFORMATION NOT PROV IDED PREV BX: [facility] Comment:INFORMATION NOT PROV IDED SOURCE [facility] Comment:Endocervix ADEQUACY: [facility] Comment: Satisfactory for evaluation. Endocervical/transformation zone component present. PAP INTERP [facility] Comment: Cytology Results: Negative for intraepithelial lesion or malignancy. COMMENT (PAP TEST) [facility] [place] [facility] Comment: This Pap test has been evaluated with computer assisted technology. ELECTRICAL DESIGN TECHNOLOGIST: Yared Wolff Comment: MVB, CT(ASCP) CT Screening Location: [place] [address] [place] [address] EXPLANATORY NOTE Que [facility] Wolff Comment: EXPLANATORY NOTE: The Pap is [...] information. HPV E6/E7 Not Detected Not Detected [facility] [place] Comment: Methodology: Nurse Quality-Mediated Amplification This assay detects E6/E7 viral messenger RNA (mRNA) from 14 high-risk HPV types (16,18,31,33,35,39,45,51,52,56,58,59,66,68). Cervical sources are required for HPV testing. If a vaginal source from a patient who has had a total hysterectomy with removal of cervix was submitted, please contact the testing laboratory for alternative testing options. For additional information, please refer to http://education.Izooble/faq/ABC160p1 (This link if provided for information/ educational purposes only.) Test Performed at: [facility] [address] [place] [address] Lee ROBLEDO Genital SWAB OF ENDOCERVIX / Unknown 04/20/2023 2:58 PM LOSS PREVENTION/SAFETY DISTRICT MANAGER 04/21/2023 9:27 AM LOSS PREVENTION/SAFETY DISTRICT MANAGER Marta Garza INFORMATION TECHNOLOGY DATA ANALYST- PATHOLOGY/CYTOLOGY ORD ERABLES Final Result [facility] [phone] [facility] [address] [place] [address] * MAMMO SCRN BILAT 3D PREMA W [...] Overall Assessment: Birads Category 1: Negative us Lucius Olson MD MAMMO ORDERABLES Final Resul t * HEMOGLOBIN A1C (08/20/2019 2:51 PM CDT) HEMOGLOBIN A1C 4.7 See Comment % 08/20/2019 3:17 PM CDT [facility] EST. AVG GLUCOSE, A1C 88 mg/dL 08/20/2019 3:17 PM CDT [facility] Blood Venipuncture / Unknown 08/20/2019 2:51 PM CDT 08/20/2019 3:00 PM CDT Narrative [facility] - 08/20/2019 3:17 PM CDT HGB A1C INTERPRETATION NORMAL: <5.7% PRE-DIABETES: 5.7 - 6.4% DIABETES: 6.5% OR GREATER Falsely low A1C measurements can occur when: 1. Anemia and/or hemolytic anemia is present. 2. Hemoglobin variants present. 3. Renal failure. 4. Transfusion of blood product in the last 120 days. We recommend ordering a fructosamine test([id number]) to more accurately assess glycemic status if any of the above conditions are present. Bill Mohamud Kaya DO CHEMISTRY ORDERABLES Fin al Result [facility] CLIA# [id number] [address] [place] [address] from Last 3 Months or Most Recently Relevant to Health Maintenance Insurance [facility] MEDICAID [place]
--- OUTSIDE RECORDS SUMMARY | 2025-03-23 10:18 | XMS_ITS | Clinical Summary ---
Author Organization [facility] Address [address] [place] [address] Care Team Providers Care Element Setter Name Role Phone Unavailable Primary Care Provider [...] on file Legal Sex Female 6:17 AM PSYCH ARNP Gender Identity Not on file Sexual Orientation Not on file Last Filed Vital Signs Vital Sign Reading Time Taken Comments Blood Pressure 134/78 08/03/2020 8:46 AM PSYCH ARNP Pulse 90 08/20/2019 1:42 PM CDT Temperature 36.1 C (97 F) 08/20/2019 1:42 PM CDT Respiratory Rate 16 08/20/2019 1:42 PM CDT Oxygen Saturation 98% 08/20/2019 1:42 PM CDT Inhaled Oxygen Concentration - - Weight 107 kg (236 lb) 08/03/2020 8:46 AM PSYCH ARNP Height 170.2 cm (5' 7 ) 08/03/2020 8:46 AM PSYCH ARNP Body Mass Index 36.96 08/03/2020 8:46 AM PSYCH ARNP Plan of Treatment Health Maintenance Due Date [...] SCREEN PAP W/HPV Routine 07/22/2019 10:47 AM PSYCH ARNP Screening for cervical cancer from Last 3 [...] CYTO SCREEN PAP W/HPV (07/22/2019 10:47 AM PSYCH ARNP) PAP INTERP See Separate Results 07/25/2019 1:47 PM PSYCH ARNP [facility] [employer] [facility] Genital SWAB OF ENDOCERVIX / Unknown Collection / Unknown 07/22/2019 10:47 AM PSYCH ARNP 07/23/2019 9:35 AM PSYCH ARNP Stacie Shrestha NP PATHOLOGY/CYTOLOGY ORDERABL ES Final Result [facility] [employer] [facility] CLIA# [id number] [address] [place], [place] [address] from Last 3 Months or Most Recently Relevant to Health Maintenance Insurance [facility] CHOICE Advance Directives For more information, please contact: [phone] * Full Code (Latest Code Status on File) Date Activated Date Inactivated Comments 09/09/2010 10:03 PM 09/11/2010 1:55 PM * Full Code Date Activated Date Inactivated Comments 09/09/2010 12:29 PM 09/09/2010 10:03 PM * Full Code Date Activated Date Inactivated Comments 09/09/2010 10:20 AM 09/09/2010 12:29 PM
--- OUTSIDE RECORDS SUMMARY | 2025-03-23 10:18 | XMS_ITS | Encounter Summary ---
Author Organization [facility] Address [address] [place] [address] Care Team Providers Care Milling Planer Operator Name Role Phone Bill Kirkpatrick DO Primary Care Provider U locoailgeoffrey Encounter Details Date Type Department Care Team (Late st Contact Info) Description 08/28/2007 Outpatient Historical [facility] Lucius Olson MD [address] [address] Outcome of Delivery, Single Liveborn Social History Tobacco Use Types Packs/Day Years Used Date Smoking Tobacco: Never Assessed Comments Unknown Sex and Gender Information Value Date Recorded Sex Assigned at Not on file Legal Sex Female 6:17 AM COMPUTER APPLICATION DEVELOPER Gender Identity Not on file Sexual Orientation [...] BASOPHILS ABSOLUTE 0.0 0.0 - 0.2 K/ul [facility] HEMOGLOBIN 11.6(L) 12.0 - 16.0 g/dL [facility] MONOCYTES 8.1 2.0 - 10.0 % [facility] RDW 14.1 11.0 - 14.5 % [facility] MONOCYTE ABSOLUTE 1.0(H) 0.1 - 0.6 K/ul [facility] WBC 12.7(H) 4.5 - 11.0 K/ul [facility] NEUTROPHILS 74.4 42.2 - 75.2 % [facility] MCH 29.1 27.0 - 34.0 pg [facility] NEUTROPHIL ABSOLUTE 9.4(H) 2.0 - 8.0 K/ul [facility] HEMATOCRIT 35.1(L) 36.0 - 46.0 % [facility] PLATELETS 188 140 - 440 K/ul [facility] EOSINOPHIL ABSOLUTE 0.0 0.0 - 0.7 K/ul [facility] EOSINOPHILS 0.3 0.0 - 7.0 % [facility] RBC 3.98(L) 4.20 - 5.40 Mil/ul [facility] MCHC 33.0 30.0 - 35.0 g/dL [facility] LYMPHOCYTE ABSOLUTE 2.2 1.2 - 4.0 K/ul [facility] LYMPHOCYTES 17.1(L) 24.0 - 44.0 % [facility] MCV 88.2 84.0 - 103.0 Fl [facility] BASOPHILS 0.1 0.0 - 1.0 % [facility] MPV 10.7 8.9 - 12.8 Fl [facility] Blood specimen (specimen) 10/02/2007 7:01 AM CDT 10/02/2007 7:06 AM CDT us Lucius Olson MD HEMATOLOGY ORDERABLES Final Result [facility] [address] [place] [address] * (ABNORMAL) BLOOD GAS CORD ARTERIAL (10/01/2007 7:21 PM CDT) PO2 CORD ARTERIAL 20 mmHg [facility] PH CORD ARTERIAL 7.32 7.18 - 7.38 Unit [facility] O2 SAT EST CORD ARTERIAL 28 % [facility] HCO3 CORD ARTERIAL 24.0 17.0 - 27.0 mmol/l [facility] TCO2 CORD 25 mmol/l [facility] PCO2 CORD ARTERIAL 47(H) 32 - 36 mmHg [facility] BASE EXCESS CORD ARTERIAL -2 -2 - 3 mmol/l [facility] SPECIMEN DESCRIPTION Arterial [facility] Comment: Test Performed By [id number] Sample not collected by [facility] Cord blood specimen (specimen) 10/01/2007 7:21 PM CDT 10/01/2007 7:24 PM CDT Lucius Olson MD ABG ORDERABLES Final Result Performing Organization Address [facility] de Phone Number [facility] [address] [place] [address] * BLOOD BANK DRAW ONLY (10/01/2007 7:48 AM CDT) Blood specimen (specimen) 10/01/2007 7:48 AM CDT 10/01/2007 7:52 AM CDT Lucius Olson MD BLOOD BANK ORDERABLES Final Result Performing Organization Address [facility] Co de Phone Number INTERFACE SYSTEM Refer to clinic/hospital department * (ABNORMAL) CBC WITHOUT DIFFERENTIAL (10/01/2007 7:48 AM CDT) LYMPHOCYTE ABSOLUTE 2.1 1.2 - 4.0 K/ul [facility] MCV 88.1 84.0 - 103.0 Fl [facility] MPV 10.9 8.9 - 12.8 Fl [facility] BASOPHILS ABSOLUTE 0.0 0.0 - 0.2 K/ul [facility] BASOPHILS 0.1 0.0 - 1.0 % [facility] HEMOGLOBIN 11.6(L) 12.0 - 16.0 g/dL [facility] RDW 14.2 11.0 - 14.5 % [facility] MONOCYTE ABSOLUTE 0.9(H) 0.1 - 0.6 K/ul [facility] MONOCYTES 9.8 2.0 - 10.0 % [facility] WBC 9.2 4.5 - 11.0 K/ul [facility] MCH 29.4 27.0 - 34.0 pg [facility] NEUTROPHIL ABSOLUTE 6.1 2.0 - 8.0 K/ul [facility] NEUTROPHILS 66.6 42.2 - 75.2 % [facility] HEMATOCRIT 34.7(L) 36.0 - 46.0 % [facility] EOSINOPHILS 0.4 0.0 - 7.0 % [facility] PLATELETS 209 140 - 440 K/ul [facility] EOSINOPHIL ABSOLUTE 0.0 0.0 - 0.7 K/ul [facility] RBC 3.94(L) 4.20 - 5.40 Mil/ul [facility] LYMPHOCYTES 23.1(L) 24.0 - 44.0 % [facility] MCHC 33.4 30.0 - 35.0 g/dL [facility] Blood specimen (specimen) 10/01/2007 7:48 AM CDT 10/01/2007 7:52 AM CDT us Lucius Olson MD HEMATOLOGY ORDERABLES Final Result [facility] [address] [place] [address] * RH (D) TYPE (10/01/2007 7:48 AM CDT) RH (D) TYPE Pos [facility] Blood specimen (specimen) 10/01/2007 7:48 AM CDT 10/01/2007 7:52 AM CDT us Lucius Olson MD BLOOD BANK ORDERABLES Final Result Performing Organization Address City/State/[facility] Co de Phone Number [facility] [address] [place] [address] documented in this encounter Visit Diagnoses Diagnosis Outcome of delivery, single liveborn documented in this encounter Care Teams Milling Planer Operator Relationship Specialty Start Date End Date Bill Kirkpatrick DO PCP - General Family Practice 08/20/19 08/20/20 documented as of this encounter
--- OUTSIDE RECORDS SUMMARY | 2025-03-23 10:18 | XMS_ITS | Encounter Summary ---
Author Organization [facility] Address [address] [place] [address] Care Team Providers Care Software Qa System Specialist Name Role Phone Bill Kirkpatrick DO Primary Care Provider U navailable Encounter Details Date Type Department Care Team (Late st Contact Info) Description 05/18/[address] [facility] Maternal and Medicine[place] [address] [place] [address] Social History Tobacco Use Types Packs/Day Years Used Date Smoking Tobacco: Never Assessed Comments Unknown Sex and Gender Information Value Date Recorded Sex Assigned at Not on file Legal Sex Female 6:17 AM JEWEL SUPERVISOR Gender Identity Not on file Sexual Orientation Not on file documented as of this encounter Plan of Treatment Not on file documented as of this encounter Visit Diagnoses Not on filedocumented in this encounter Care Teams Software Qa System Specialist Relationship Specialty Start Date End Date Bill Kirkpatrick DO PCP - General Family Practice 08/20/19 08/20/20 documented as of this encounter
--- OUTSIDE RECORDS SUMMARY | 2025-03-23 10:18 | XMS_ITS | Encounter Summary ---
Author Organization [facility] Address [address] [facility] Attn: [place] [address] Care Team Providers Care Book Coverer Name Role Phone KayaBill lawrence Primary Care Provider U locoailgeoffrey Encounter Details Date Type Department Care Team (Late st Contact Info) Description 11/12/2007 Outpatient Historical Lucius Olson MD [address] [address] Routine Follow-Up Social History Tobacco Use Types Packs/Day Years Used Date Smoking Tobacco: Never Alcohol Use Standard Drinks/Week Comments No 0 (1 standard drink = 0.6 oz pur e alcohol) Comments No Sex and Gender Information Value Date Recorded Sex Assigned at Not on file Legal Sex Female 6:17 AM CRYSTAL CALIBRATOR Gender Identity Not on file Sexual Orientation Not on file documented as of this encounter Plan of Treatment Not on file documented as of this encounter Procedures Procedure Name Priority Date/Time Associated Diagnosis Comments PATHOLOGY Routine 11/12/2007 10:56 PM CDT documented in this encounter Results * PATHOLOGY (11/12/2007 10:56 PM CDT) PATHOLOGY/BRIAN NOLAND REPORT [facility] Anatomic Pathology Dept [address] [facility] [address] Patient: INDIA RUEDA Accn No: [id number] Collected: 11/12/2007 10:56:00 PM CYTOLOGY NUCLEAR POWER PLANT ENGINEER FINAL REPORT - - MORTGAGE CLOSING CLERK PAP History Specimen Source: None Provided Post- Last Pap Date: None Provided Specimen Adequacy Satisfactory for interpretation. The smear lacks endocervical or metaplastic cells. Diagnosis NEGATIVE FOR INTRAEPITHELIAL LESION OR MALIGNANCY. (Previously noted as Within Normal Limits) Control Room Technician 11/13/07 Completed by: SINGH OQUENDO (Electronically signed [...] follow-up documented in this encounter Care Teams Book Coverer Relationship Specialty Start Date End Date Bill Kirkpatrick DO PCP - General Family Practice 08/20/19 08/20/20 documented as of this encounter
[2025-03-23 10:21] VITALS: BP 121/80; PULSE 98; RESP 16; TEMP 36.5; O2SAT 96; BMI 32.6
--- NOTE | 2025-03-23 10:22 | XRR_ITS ---
PROCEDURE INFORMATION: Exam: XR Chest Exam date and time: 03/23/2025 10:39 AM Age: 44 years old Clinical indication: Pain; Chest pressure; Additional info: Chest pain TECHNIQUE: Imaging protocol: Radiologic exam of the chest. Views: 1 view. COMPARISON: CR (CHEST, ) 03/09/2025 3:55 PM FINDINGS: Lungs: Unremarkable. No consolidation. Pleural spaces: Unremarkable. No pleural effusion. No pneumothorax. Heart/Mediastinum: Unremarkable. No cardiomegaly. Bones/joints: Unremarkable. XR/XR chest 1V portable [id number] IMPRESSION: No acute findings.
--- NOTE | 2025-03-23 10:36 | W.ED.WEAKNES ---
HPI - Weakness General: Chief complaint: Weakness Stated complaint: cold sweats L arm pain and numbness since Time Seen by Provider: 03/23/25 10:15 History of Present Illness: 44-year-old female with history of atrial fibrillation, chronic anticoagulation on Eliquis, frequent headaches, anxiety and depression, and obesity who presents to the emergency room with generalized weakness and malaise. Says she has not been feeling well for about a week now. She has had some left shoulder pain radiating into her neck. She says she has been in A-fib for a few weeks now. However she is in sinus rhythm on presentation here. She had a subjective fever recently. No chest pain. No vomiting. No abdominal pain. 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 Related Data Previous Rx's ?Medication ?Instructions ?Recorded apixaban 5 mg tablet (Eliquis) 5 mg PO BID #60 tabs 03/10/25 diltiazem HCl 120 mg 120 mg PO DAILY #30 caps 03/10/25 capsule,extended release 24 hr (Cartia XT) digoxin 125 mcg (0.125 mg) tablet 125 mcg PO DAILY #90 tabs 03/19/25 cefdinir 300 mg capsule 300 mg PO BID 7 days #14 caps 03/23/25 Allergies Allergy/AdvReac Type Severity Reaction Status Date / Time No Known Allergies Allergy Verified 03/19/25 15:55 Review of Systems Narrative: Constitutional symptoms: Negative except as documented in HPI. Skin symptoms: Negative except as documented in HPI. Eye symptoms: Negative except as documented in HPI. ENMT symptoms: Negative except as documented in HPI. Respiratory symptoms: Negative except as documented in HPI. Cardiovascular symptoms: Negative except as documented in HPI. Gastrointestinal symptoms: Negative except as documented in HPI. Genitourinary symptoms: Negative except as documented in HPI. Musculoskeletal symptoms: Negative except as documented in HPI. Neurologic symptoms: Negative except as documented in HPI. Psychiatric symptoms: Negative except as documented in HPI. Endocrine symptoms: Negative except as documented in HPI. PFSH ED PFSH: Medical History (Updated 03/23/25 @ 12:30 by Chasity Boston MD) Paroxysmal atrial fibrillation off of coumadin due to heavy periods Surgical History Hx of cholecystectomy Family History Other CAD (coronary artery disease) Diabetes Hypertension Social History Smoking and tobacco/nicotine status: never used tobacco/nicotine Alcohol intake: never Substance/Drug Use: never Physical Exam Narrative: EXAM NARRATIVE: General: Alert, no acute distress. Skin: Warm, dry. Head: Normocephalic, atraumatic. Neck: Supple, trachea midline. Eye: Extraocular movements are intact. Ears, nose, mouth and throat: mucosa moist. Cardiovascular: Regular, Normal peripheral perfusion. Respiratory: Lungs are clear to auscultation, respirations are non-labored, breath sounds are equal, Symmetrical chest wall expansion. Gastrointestinal: Soft, Nontender, Non distended Musculoskeletal: Normal ROM, no deformity. Neurological: Alert and oriented, No focal neurological deficit observed. Psychiatric: Cooperative, appropriate mood & affect. Course Vital Signs: Vital signs: Vital Signs Temperature 97.7 F 03/23/25 10:21 Pulse Rate 86 03/23/25 12:30 Respiratory Rate 16 03/23/25 12:30 Blood Pressure 122/92 03/23/25 12:30 Pulse Oximetry 97 03/23/25 12:30 Oxygen Delivery Me thod Room Air 03/23/25 11:52 MDM - Weakness Medical Decision Making Medical decision making: Differential diagnosis for patient presenting with generalized weakness including but not limited to and based on the above HPI, review of systems and physical exam: Sepsis. Dehydration. Renal failure. Electrolyte abnormalities. Anemia. Congestive heart failure. Hypotension. Coronary syndrome. Hepatitis. Cirrhosis. Infections such as pneumonia, urinary tract infection, Tick bourne illness, Cellulitis, Viral infections including influenza and Covid-19. Workup: labwork and lab/exam driven imaging ordered to evaluate, rule in and rule out above pathologies. EKG: Time 10:18 AM. Rate 75. Normal sinus rhythm, No ST-T changes, no ectopy, normal VA & QRS intervals, This was reviewed and interpreted by myself the ER physician at 10:22 AM Chest x-ray: No acute process. No infiltrate. No pneumothorax. This was reviewed and interpreted by myself the emergency room physician. I also reviewed the radiology report. Lab Review: Laboratory results were reviewed and interpreted by myself the emergency room physician. No leukocytosis. No anemia. No renal failure. Cardiac markers are negative. Flu COVID and RSV are negative. She does have 5-10 whites with trace bacteria in her urine that is leukocyte esterase positive. Possibly a urinary tract infection is causing her symptoms. I reviewed the patient's medical record. 44-year-old female with history of atrial fibrillation, chronic anticoagulation on Eliquis, frequent headaches, anxiety and depression, and obesity Reexamination: Patient remained stable. No increased work of breathing. No altered mental status. No focal motor deficits. Chest x-ray: No acute process. No infiltrate. No pneumothorax. This was reviewed and interpreted by myself the emergency room physician. I also reviewed the radiology report. Assessment and plan: Urinary tract infection Malaise Dehydration ?Rocephin and 500 mL liter normal saline bolus - Discharged home - Discussed plan with patient. Answered any questions. - Evaluation and treatment of this problem were appropriate in the emergency setting. Lab Data 03/23/25 10:33 03/23/25 10:33 Radiology Impressions Chest X-Ray 03/23/25 10:22 IMPRESSION: No acute findings. Laboratory Results WBC 6.89 10^3/uL (3.29-11.43) 03/23/25 10:33 RBC 4.65 10^6/uL (3.85-5.65) 03/23/25 10:33 Hgb 13.40 g/dL (11.27-16.99) 03/23/25 10:33 Hct 39.0 % (36-47) 03/23/25 10:33 MCV 83.9 fl (85-98) L 03/23/25 10:33 MCH 28.8 pg (27-33) 03/23/25 10:33 MCHC 34.4 g/dL (30-55) 03/23/25 10:33 RDW 12.6 % (12.1-15.1) 03/23/25 10:33 Plt Count 308 10^3/cmm (157-399) 03/23/25 10:33 MPV 9.4 fL (7.4-10.4) 03/23/25 10:33 Neut % (Auto) 64.7 % 03/23/25 10:33 Lymph % (Auto) 24.8 % 03/23/25 10:33 [place] % (Auto) 7.7 % 03/23/25 10:33 Eos % (Auto) 1.5 % 03/23/25 10:33 Baso % (Auto) 0.7 % 03/23/25 10:33 Neut # (Auto) 4.46 10^3/uL (1.8-7.7) 03/23/25 10:33 Lymph # (Auto) 1.7 10^3/uL (0.8-4.8) 03/23/25 10:33 [place] # (Auto) 0.5 10^3/uL (0.2-0.9) 03/23/25 10:33 Eos # (Auto) 0.1 10^3/uL (0.0-0.8) 03/23/25 10:33 Baso # (Auto) 0.1 10^3/uL (0.0-0.1) 03/23/25 10:33 Nucleated RBC % (auto) 0 % 03/23/25 10:33 Nucleated RBCs # 0.0 /100WBC 03/23/25 10:33 Sodium 139 mmol/L (136-145) 03/23/25 10:33 Potassium 4.5 mmol/L (3.5-5.1) 03/23/25 10:33 Chloride 104 mmol/L (98-107) 03/23/25 10:33 Carbon Dioxide 25 mmol/L (22-29) 03/23/25 10:33 Anion Gap 14.5 (5-19) 03/23/25 10:33 BUN 15 mg/dL (6-20) 03/23/25 10:33 Creatinine 0.6 mg/dL (0.5-0.9) 03/23/25 10:33 GFR Calculation 108.1 mL/min (90-130) 03/23/25 10:33 Glucose 90 mg/dL (65-115) 03/23/25 10:33 Calculated Osmolality 288 mOsm/kg (285-295) 03/23/25 10:33 Lactic Acid 1.1 mmol/L (0.5-2.2) 03/23/25 11:10 Calcium 9.0 mg/dL (8.5-10.5) 03/23/25 10:33 Total Bilirubin 0.4 mg/dL (0.15-1.2) 03/23/25 10:33 AST 42 U/L (0-32) H 03/23/25 10:33 ALT 88 U/L (0-33) H 03/23/25 10:33 Alkaline Phosphatase 84 U/L (35-105) 03/23/25 10:33 Troponin T Baseline < 6 ng/L (0-10) 03/23/25 10:33 C-Reactive Protein 3.4 mg/L (0.0-4.9) 03/23/25 10:33 NT-Pro-B Natriuret Pep 63 pg/mL (0-125) 03/23/25 10: Total Protein 7.1 g/dL (6.6-8.7) 03/23/25 10:33 Albumin 4.2 g/dL (3.5-5.2) 03/23/25 10:33 Globulin 2.9 g/dL (1.3-4.6) 03/23/25 10:33 Urine Color Yellow (Yellow) 03/23/25 11:50 Urine Appearance Cloudy (CLEAR) A 03/23/25 11:50 Urine pH 7.0 (5-7) 03/23/25 11:50 Ur Specific [place] 1.014 (1.005-1.030) 03/23/25 11:50 Urine Protein Negative (Negative) 03/23/25 11:50 Urine Glucose (UA) Negative (Normal) 03/23/25 11:50 Urine Ketones Negative (Negative) 03/23/25 11:50 Urine Blood Non-haemolysed trace (Negative) 03/23/25 11:50 Urine Nitrate Negative (Negative) 03/23/25 11:50 Urine Bilirubin Negative (Negative) 03/23/25 11:50 Urine Urobilinogen 0.2 mg/dL (Negative) 03/23/25 11:50 Ur Leukocyte Esterase 1+ (Negative) A 03/23/25 11:50 Urine RBC 0-4 /hpf (0-2) H 03/23/25 11:50 Urine WBC 5-10 /hpf (0-5) H 03/23/25 11:50 Ur Squamous Epith Cells 10-15 /hpf (0-5) H 03/23/25 11:50 Amorphous Sediment Not Reportable 03/23/25 11:50 Urine Bacteria Trace /hpf (NONE) 03/23/25 11:50 Digoxin 0.4 ng/mL (0.6-1.2) L 03/23/25 10:33 Influenza A (PCR) Negative (Negative) 03/23/25 10:45 Influenza Type B (PCR) Negative (Negative) 03/23/25 10:45 RSV (PCR) Negative (Negative) 03/23/25 10:45 SARS-CoV-2 (PCR) Negative (Negative) 03/23/25 10:45 All radiology interpretation(s) finalized by discharge Discharge Plan Discharge Patient Disposition: Home Clinical Impression: Urinary tract infection, Dehydration, Malaise, Atrial fibrillation, Chronic anticoagulation Condition: Stable Prescriptions: New cefdinir 300 mg capsule 300 mg PO BID 7 Days Qty: 14 0RF No Action diltiazem HCl [Cartia XT] 120 mg capsule,extended release 24hr 120 mg PO DAILY Qty: 30 6RF Eliquis 5 mg tablet 5 mg PO BID Qty: 60 6RF digoxin 125 mcg (0.125 mg) tablet 125 mcg PO DAILY Qty: 90 1RF Discharge Orders: Discharge ED (Routine); Ordered 03/23/25 Ordered By: Chasity Boston Referrals: Kushal Pierre MD [Primary Care Provider, Family Practice] Discharge Diet: Usual diet Discharge Activity: Increase activity as tolerated Patient Instructions: Urinary Tract Infection in Women (ED), Opioid Safety, Pain Management, Patient Portal & Katie Instructions Activity Restrictions/Additional Instructions: Thank you for choosing [facility] for your healthcare needs today. You have been screened and evaluated and felt safe for discharge. Health conditions do change or evolve sometimes and as such it is important that you follow up with your Primary Doctor to be re checked, 3-5 days is a general good time frame for follow up. You are always welcome to return to the ED for re assessment if your symptoms are worsening or you have new concerns Print Language: British Coding Level of Care Code ED Hypertrichologist for Félix Mckee
[2025-03-23 10:43] LABS: Hematocrit 39.0 % (36-47); Hemoglobin 13.40 g/dL (11.27-16.99); Mean Corpuscular HGB Conc 34.4 g/dL (30-55); Mean Corpuscular Hemoglobin 28.8 pg (27-33); Mean Corpuscular Volume 83.9 fl (85-98); Nucleated Red Blood Cells % 0 %; Platelet Count 308 10^3/cmm (157-399); Red Blood Count 4.65 10^6/uL (3.85-5.65); White Blood Count 6.89 10^3/uL (3.29-11.43)
[2025-03-23 10:58] LABS: Troponin(5th) Baseline < 6 ng/L (0-10)
[2025-03-23 11:08] LABS: Alanine Aminotransferase 88 U/L (0-33); Albumin Level 4.2 g/dL (3.5-5.2); Alkaline Phosphatase 84 U/L (35-105); Anion Gap 14.5 (5-19); Aspartate Amino Transferase 42 U/L (0-32); Blood Urea Nitrogen 15 mg/dL (6-20); Calcium 9.0 mg/dL (8.5-10.5); Carbon Dioxide 25 mmol/L (22-29); Chloride 104 mmol/L (98-107); Creatinine Clr Calc Pharmacy 144.5814; Globulin 2.9 g/dL (1.3-4.6); Glucose 90 mg/dL (65-115); NT Pro B Type Natriuretic Pept 63 pg/mL (0-125); Osmolality Calculated 288 mOsm/kg (285-295); Potassium 4.5 mmol/L (3.5-5.1); Sodium 139 mmol/L (136-145); Total Protein 7.1 g/dL (6.6-8.7)
[2025-03-23 11:29] LABS: Respiratory Syncytial Virus Ce NEGATIVE (Negative); SARS-CoV-2 PCR NEGATIVE (Negative)
[2025-03-23 11:51] LABS: Lactic Sepsis W/Reflex 1.1 mmol/L (0.5-2.2)
[2025-03-23 11:52] VITALS: BP 111/73; PULSE 72; O2SAT 96
[2025-03-23 11:57] LABS: Glucose Urine UA Negative (Normal); Nitrate Urine Negative (Negative); Specific Gravity, Urine 1.014 (1.005-1.030)
[2025-03-23 12:04] LABS: Digoxin 0.4 ng/mL (0.6-1.2)
[2025-03-23 12:13] LABS: UA Manual Slide Review YES
--- NOTE | 2025-03-23 12:22 | ECG_ITS ---
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 Measurements Intervals [place] Rate: 72 P: 24 MT: 202 QRS: 2 QRSD: 86 T: 41 QT: 391 QTc: 429 Interpretive Statements SINUS RHYTHM Compared to ECG 03/23/2025 10:18:55 No significant changes Electronically Signed On 03-25-2025 19:46:49 CDT by Tiffani Buitrago M.D. [email or web address]
[2025-03-23 12:30] VITALS: BP 122/92; PULSE 86; RESP 16; O2SAT 97
[2025-03-23] MEDS: cefTRIAXone 1,000 mg SDV 1000 MG IVP (12:32)
[2025-03-23 13:04] VITALS: BP 130/93; PULSE 75; RESP 20; O2SAT 98
== END 2025-03-23 13:10 | disposition home or self-care (01) ==
PROVIDERS: Emergency Provider Emergency Medicine; PCP Family Medicine
DX: N39.0 Urinary tract infection, site not specified (principal); E86.0 Dehydration; I48.91 Unspecified atrial fibrillation; Z79.01 Long term (current) use of anticoagulants; R53.81 Other malaise; Z11.52 Encounter for screening for COVID-19
CPT/HCPCS: 36415; 71045; 80053; 80162; 81001; 83605; 83880; 84484; 85025; 86140; 87040; 87637; 93005; 96374; 99285; J0696; J7040; J9999